=== PATIENT | female | born 1940 | race Caucasian/White ===

== ENCOUNTER → 2017-03-18 | Outpatient (CLI) | payer OTHER | LOC: FIMAGING 14:30 | PROVIDERS: ATTEND Orthopaedic Surgery | DX: Z01.818 Encounter for other preprocedural examination (principal); M17.0 Bilateral primary osteoarthritis of knee ==

== ENCOUNTER 2017-04-22 06:00 | Inpatient (IN) | payer OTHER ==
[~2017-04-22 06:00] MED LIST: ACETAMINOPHEN 325 MG TAB PO ONE; CEFAZOLIN 2 GM/DEXTR 100 ML IV ONE; CHLORHEXIDINE GLUC HIBICLENS 118 ML BTL TP ONE; FAMOTIDINE 20 MG TAB PO ONE; ROPI/epiNEPH/KETOROLAC/morphINE JOINT COCKTAIL IU ONE; TRANEXAMIC ACID 800 MG in NS 100 ML IV ONE
[2017-04-22] MEDS ORDERED: THROMBIN (BOVINE) 5,000 UNIT VIAL TP ONE (06:51)
[2017-04-22] MEDS ORDERED: CALCIUM CHLORIDE 1 GM/10 ML INJ ONE (06:51)
[2017-04-22] MEDS ORDERED: ONDANSETRON 4 MG/2 ML VIAL ONE (06:56)
[2017-04-22] MEDS ORDERED: MIDAZOLAM 2 MG/2 ML VIAL ONE (07:03)
[2017-04-22] MEDS ORDERED: fentaNYL 100 MCG/2 ML INJ ONE ×3 (07:07→11:39)
[2017-04-22] MEDS ORDERED: PROPOFOL/EMULSION 500 MG/50 ML BOTTLE IV ONE (07:08)
[2017-04-22] MEDS ORDERED: CEFAZOLIN 2 GM/DEXTROSE/100 ML BAG IV ONE (07:12)
[2017-04-22] MEDS ORDERED: ACETAMINOPHEN 325 MG TAB ONE (07:12)
[2017-04-22] MEDS ORDERED: FAMOTIDINE 20 MG TAB ONE (07:12)
[2017-04-22] MEDS ORDERED: LIDOCAINE 2% 5 ML SDV ONE ×2 (07:13→07:14)
[2017-04-22] MEDS ORDERED: ROPIVACAINE HCL 150 MG/30 ML INJ ONE (07:29)
[2017-04-22] MEDS ORDERED: PHENYLEPHRINE HCL 100 MCG/ML SYR ONE (07:33)
[2017-04-22] MEDS ORDERED: ONDANSETRON 4 MG/2 ML VIAL IVP ONE (10:30)
[2017-04-22] MEDS ORDERED: LR 1,000 ML IV ONE (11:38)
[2017-04-22] MEDS ORDERED: LIDOCAINE 1% 5 ML SDV ID PRN (11:38)
[2017-04-22] MEDS ORDERED: HYDROCODONE/APAP 5/325 TAB ONE (11:39)
[2017-04-22] MEDS ORDERED: traMADol 50 MG TAB PO PRN (14:30)
[2017-04-22] MEDS ORDERED: ACETAMINOPHEN 325 MG TAB PO PRN (14:33)
[2017-04-22] MEDS: ceFAZolin 2 GM/DEXTROSE 100 ML IV SCH ×2 (15:12→22:18)
[2017-04-22] MEDS: D5W 1/2 NS W/ 20 KCl/L 1,000 ML IV SCH (15:12)
[2017-04-22] MEDS ORDERED: ONDANSETRON 4 MG/2 ML VIAL IVP PRN (15:50)
[2017-04-22] MEDS ORDERED: PROMETHAZINE HCL 25 MG/ML INJ IVP PRN (15:51)
[2017-04-22] MEDS ORDERED: MELATONIN 3 MG TAB PO SCH (21:00)
[2017-04-22] MEDS ORDERED: ASPIRIN 325 MG TAB PO ONE (21:00)
[2017-04-23] MEDS: D5W 1/2 NS W/ 20 KCl/L 1,000 ML IV SCH (03:10)
[2017-04-23 05:01] LABS: HEMATOCRIT 36.7 % (38.0-47.0); HEMOGLOBIN 12.3 g/dL (12.6-16.3)
[2017-04-23] MEDS: ceFAZolin 2 GM/DEXTROSE 100 ML IV SCH (05:26)
--- NOTE | 2017-04-23 06:59 | PDIAF ---
- Diagnosis Diagnosis: right knee djd - Medication Management Discharge Medications: Medications to Continue on Transfer Ascorbic Acid [Vitamin C 500 mg (*)] 1,000 mg PO BID 04/04/17 [Last Taken ] Cholecalciferol Vit D3 [Vitamin D3 (*)] 1,000 units PO DAILY 04/04/17 [Last Taken 04/08/17] Cyanocobalamin [Vitamin B12 (*)] 1,000 mcg PO DAILY 04/04/17 [Last Taken ] Herbals/Supplements -Info Only 1 ea PO DAILY 04/04/17 [Last Taken 04/08/17] Losartan Potassium [Cozaar 25 mg (*)] 25 mg PO DAILY 04/04/17 [Last Taken 05:00] Melatonin [Melatonin 3 MG (*)] 3 mg PO HS 04/04/17 [Last Taken 04/21/17] Hydrocodone/APAP 5/325 [Vevay 5/325 (*)] 1 - 2 tab PO Q4 PRN #80 tab 04/23/17 [ Last Taken Unknown] Rivaroxaban [Xarelto 10mg (*)] 10 mg PO DAILY #30 tab 04/23/17 [Last Taken Unknown] traMADol [Ultram 50 mg (*)] 50 - 100 mg PO Q6 PRN #90 tab 04/23/17 [Last Taken Unknown] Discharge Medications: Refer to the Discharge Home Medication list for PRN reason. - Orders Services needed: Physical Therapy Diet Recommendation: no restrictions on diet Diet Texture: Regular Texture Diet Activity/Weight Bearing Restrictions: wbat. rom as jay. daily dressing changes. may shower without bandage. no soaking or immersion. seek attn for drainage, redness, swelling. f/u at two weeks - Follow Up Care Current Providers and Referrals: Hailey Linares MD [Primary Care Provider] -
[2017-04-23] MEDS: HYDROCODONE/APAP 5/325 TAB PO PRN ×3 (08:45→14:24)
[2017-04-23] MEDS ORDERED: RIVAROXABAN 10 MG TAB PO SCH (09:00)
[2017-04-23] MEDS ORDERED: LOSARTAN POTASSIUM 25 MG TAB PO SCH (09:00)
[2017-04-23] MEDS ORDERED: CHOLECALCIFEROL VIT D3 1,000 UNITS TAB PO SCH (09:00)
[2017-04-23] MEDS ORDERED: CYANO/VITAMIN B12 1000 MCG TAB PO SCH (09:00)
--- NOTE | 2017-04-23 09:52 | GDS ---
[f rep st] DISCHARGE SUMMARY ADMISSION DIAGNOSIS: Right knee degenerative joint disease. DISCHARGE DIAGNOSIS: Right knee degenerative joint disease. PROCEDURE: Right total knee arthroplasty. HISTORY OF PRESENT ILLNESS: The patient is a 76-year-old woman with end-stage arthritis to her [facility] t knee. Clinical and radiographic features are consistent with this. She has failed all attempts a t conservative management. I, therefore, recommended total knee replacement. She understood the ri sks, benefits, alternatives, and wished to proceed. Written consent was signed and placed in the ngoc coppola's chart. HOSPITAL COURSE: The patient was admitted to the hospital floor after uncomplicated total knee arth roplasty, MAKOplasty. She tolerated the procedure well. Overnight, she had no specific complicatio ns. She did have slight nausea and emesis. At the time of discharge, she is tolerating an oral t. Her pain is well controlled on oral medicines. She is voiding without difficulty. Her incision is clean, dry, and intact. Dressing is clean, dry, and intact. She has no calf swelling or tender ness. She has intact ankle plantar flexion, dorsiflexion, EHL function with 5/5 strength. X-rays a re stable with no fracture or lucency. DISCHARGE ACTIVITY: Weightbearing as tolerated. Range of motion as tolerated. Daily dressing armenta ges. May shower without the bandage. No soaking or immersion. Follow up in 2 weeks. Seek attenti on for increasing redness, swelling, drainage, discharge, or other focal complaints. DISCHARGE MEDICATIONS: Xarelto 10 mg p.o. daily, Holt 5/325 one to 2 every 6 hours p.r.n. pain, an d tramadol 50 mg one to 2 every 6 hours p.r.n. pain. /[id number]/MODL
[2017-04-23 12:04] VITALS: BP 132/60; PULSE 77; RESP 18; TEMP 97.8; O2SAT 95
== END 2017-04-23 15:22 | disposition home health service (06) | DRG 470 ==
LOC: F3N 06:00 → OBSVTOIN 14:41
PROVIDERS: ADMIT Orthopaedic Surgery; ATTEND Orthopaedic Surgery
PROC: 0SRC0J9 Replacement of Right Knee Joint with Synthetic Substitute, Cemented, Open Approach (ICD-10-PCS; principal; 2017-04-22 07:15)
PROC: 8E0YXBZ Computer Assisted Procedure of Lower Extremity (ICD-10-PCS; principal; 2017-04-22 07:15)
DX: M17.0 Bilateral primary osteoarthritis of knee (principal); M81.0 Age-related osteoporosis without current pathological fracture; E88.81 Metabolic syndrome and other insulin resistance
CPT/HCPCS: 97116-GP; 97161-GP; 97165-GO; C1713; G8978-GP-CJ; G8979-GP-CI; G8980-GP-CI; G8987-GO-CI; G8988-GO-CI; G8989-GO-CI; J0171; J0690; J1885; J2250; J2370; J2405; J2704; J2795; J3010

== ENCOUNTER → 2017-05-28 | Outpatient (CLI) | payer OTHER | LOC: BMCIMAGING 13:29 | PROVIDERS: ATTEND Internal Medicine | DX: Z12.31 Encounter for screening mammogram for malignant neoplasm of breast (principal); Z85.3 Personal history of malignant neoplasm of breast; Z90.11 Acquired absence of right breast and nipple | CPT/HCPCS: G0202-52 ==

== ENCOUNTER → 2017-05-31 | Outpatient (CLI) | payer OTHER | LOC: BMCIMAGING 09:45 | PROVIDERS: ATTEND Physician Assistant | DX: Z96.651 Presence of right artificial knee joint (principal) ==

== ENCOUNTER 2017-06-27 12:01 | Emergency (ER) | payer OTHER ==
[2017-06-27 12:11] VITALS: TEMP 98.1
--- NOTE | 2017-06-27 13:29 | CPEKG ---
Heart Rate: 80 RR Interval: 750 P-R Interval: 136 QRSD Interval: 88 QT Interval: 368 QTC Interval: 425 P Lincoln: 36 QRS Lincoln: -31 T Wave Lincoln: 47 EKG Severity - OTHERWISE NORMAL ECG - EKG Impression: SINUS RHYTHM EKG Impression: LEFT AXIS DEVIATION Electronically Signed By: Arnav Miranda 27-Jun-2017 17:13:57
[2017-06-27] MEDS ORDERED: NS 1,000 ML IV ONE (13:39)
[2017-06-27 13:56] LABS: % IMMATURE GRANULYOCYTES 0.2 % (0.0-1.1); ABSOLUTE IMMATURE GRANULOCYTES 0.01 10^3/uL (0.00-0.10); ADD DIFF? NO; ADD MORPH? NO; ADD SCAN? NO; ATYPICAL LYMPHOCYTE FLAG 0 (0-99); FRAGMENT RBC FLAG 0 (0-99); HEMATOCRIT 42.7 % (38.0-47.0); HEMOGLOBIN 14.4 g/dL (12.6-16.3); LEFT SHIFT FLG 0 (0-99); LIPEMIA HEMOLYSIS FLAG 80 (0-99); MEAN CELL HEMOGLOBIN 31.9 pg (27.9-34.1); MEAN CELL HEMOGLOBIN CONCENTR. 33.7 g/dL (32.4-36.7); MEAN CELL VOLUME 94.7 fL (81.5-99.8); MEAN PLATELET VOLUME 9.3 fL (8.7-11.7); PLATELET CLUMPS FLAG 10 (0-99); PLATELET COUNT 196 10^3/uL (150-400); RED BLOOD CELL COUNT 4.51 10^6/uL (4.18-5.33); RED CELL DISTRIBUTION WIDTH 13.4 % (11.5-15.2)
[2017-06-27 14:03] LABS: COLOR YELLOW; LEUKOCYTE ESTERASE,URINE TRACE (NEGATIVE); NITRITE,URINE NEGATIVE (NEGATIVE)
[2017-06-27 14:07] LABS: MUCUS TRACE /lpf (NONE-1+)
[2017-06-27 14:24] LABS: ANION GAP 14 mEq/L (8-16); CALCIUM 9.8 mg/dL (8.5-10.4); CARBON DIOXIDE 21 mEq/l (22-31); CHLORIDE 104 mEq/L (97-110); CREATININE 0.9 mg/dL (0.6-1.0); GLOMERULAR FILTRATION RATE > 60; GLUCOSE 101 mg/dL (70-100); POTASSIUM 4.1 mEq/L (3.5-5.2); SODIUM 139 mEq/L (134-144)
--- NOTE | 2017-06-27 14:56 | EDPHY ---
H & P Stated Complaint: r knee surg 04/22 having increasing fatigue/wt loss/shaky Time Seen by Provider: 06/27/17 13:33 HPI/ROS: CHIEF COMPLAINT: Feeling shaky HISTORY OF PRESENT ILLNESS: The patient presents to the ED with a one-week history of "feeling shaky." The patient had a knee replacement done in April. Over the past week she has been cutting back on her narcotic medications. Specifically she is cut her dose of narcotics and half. During this time she has developed some shakiness and mild restlessness. She has no complaints of fever, abdominal pain, vomiting, cough or dysuria. The patient does acknowledge that her symptoms may be secondary to cutting back on her narcotic medications. The patient denies any focal numbness or weakness. She denies any complaints of headache or trauma. She reports normal mobility in her knee replacement. REVIEW OF SYSTEMS: A comprehensive 10 point review of systems is otherwise negative aside from elements mentioned in the history of present illness. Source: Patient Exam Limitations: No limitations - Personal History Current Tetanus/Diphtheria Vaccine: Yes Tetanus Vaccine Date: less than 10 years ago - Medical/Surgical History Hx Asthma: No Hx Chronic Respiratory Disease: No Hx Diabetes: No Hx Cardiac Disease: No Hx Renal Disease: No Hx Cirrhosis: No Hx Alcoholism: No Hx HIV/AIDS: No Hx Splenectomy or Spleen Trauma: No Other PMH: PERIPHERAL NEUROPATHY, LEFT HIP REPAIR, PARTICAL LEFT MASECTOMY TOTAL RIGHT MASECTOMY , HTN, INTESTINAL BLOCKAGE TEMPORARY COLECTOMY REVERSEED. BRISSA HOFF, - Social History Smoking Status: Former smoker - Physical Exam Exam: General Appearance: Alert, no distress Eyes: Pupils equal and round no pallor or injection ENT, Mouth: Mucous membranes moist Respiratory: There are no retractions, lungs are clear to auscultation Cardiovascular: Regular rate and rhythm Gastrointestinal: Abdomen is soft and nontender, no masses, bowel sounds normal Neurological: A&O, normal motor function, normal sensory exam, normal cranial nerves Skin: Warm and dry, no rashes Musculoskeletal: Neck is supple nontender Extremities: symmetrical, full range of motion Constitutional: Initial Vital Signs Temperature (C) 36.7 C 06/27/17 12:08 Heart Rate 94 06/27/17 12:08 Respiratory Rate 19 06/27/17 12:08 Blood Pressure 156/90 H 06/27/17 12:08 O2 Sat (%) 95 06/27/17 12:08 O2 Delivery Mode Room Air Allergies/Adverse Reactions: oxycodone HCl [From Percocet] Allergy (Verified 06/27/17 12:06) Sulfa (Sulfonamide Antibiotics) Allergy (Verified 06/27/17 12:06) Vomiting Home Medications: Medication Instructions Recorded Ascorbic Acid [Vitamin C 500 mg 1,000 mg PO BID 04/04/17 (*)] Cholecalciferol Vit D3 [Vitamin D3 1,000 units PO DAILY 04/04/17 (*)] Cyanocobalamin [Vitamin B12 (*)] 1,000 mcg PO DAILY 04/04/17 Herbals/Supplements -Info Only 1 ea PO DAILY 04/04/17 Losartan Potassium [Cozaar 25 mg 25 mg PO DAILY 04/04/17 (*)] Hydrocodone/APAP 5/325 [Newman 1 - 2 tab PO Q4 PRN #80 tab 04/23/17 5/325 (*)] Medical Decision Making Procedures: Additional database consisted of a urinalysis which demonstrates no evidence of an infection. ED course Patient did receive 1 L of normal saline for IV rehydration. The patient's laboratory studies and urinalysis are within normal limits. The patient underwent serial examinations in the ED by myself. She has no focal neurologic deficits appreciated on her exam. She is hemodynamically stable. There is no evidence of a infection. The patient presents to the ED with uneasiness most consistent with her likely decreasing narcotic dose. At this point time she has no symptoms of over withdrawal. I do feel the patient can continue to slowly taper her narcotic medications. She will be discharged home with customary aftercare instructions and return precautions. ED Course/Re-evaluation: Differential diagnosis considered includes urinary tract infection, metabolic abnormality, narcotic withdrawal, dehydration - Data Points Laboratory Results: Laboratory Results 06/27/17 13:40 06/27/17 13:40 Medications Given: Discontinued Medications Sodium Chloride (Ns) 1,000 mls @ 0 mls/hr IV EDNOW ONE; Wide Open PRN Reason: Protocol Stop: 06/27/17 13:40 Last Admin: 06/27/17 13:54 Dose: 1,000 mls Departure - Departure Disposition: Home, Routine, Self-Care Clinical Impression: Generalized weakness Condition: Good Instructions: Weakness (ED) Additional Instructions: 1. Please return to the ED for worsening symptoms. 2. It is certainly possibly your symptoms today are a result of cutting back on her narcotic medications. Referrals: Hailey Linares MD [Primary Care Provider] - As per Instructions
[2017-06-27 15:21] VITALS: BP 170/102; PULSE 79; RESP 18; O2SAT 94
== END 2017-06-27 15:28 | disposition home or self-care (01) ==
DX: R53.1 Weakness (principal); E86.9 Volume depletion, unspecified; I10 Essential (primary) hypertension; Z87.891 Personal history of nicotine dependence

== ENCOUNTER → 2017-07-10 | Outpatient (CLI) | payer OTHER | LOC: BMCIMAGING 10:32 | PROVIDERS: ATTEND Orthopaedic Surgery | DX: Z09 Encounter for follow-up examination after completed treatment for conditions other than malignant neoplasm (principal); Z96.651 Presence of right artificial knee joint ==

== ENCOUNTER → 2017-09-11 | Outpatient (CLI) | payer OTHER | LOC: BMCIMAGING 10:27 | PROVIDERS: ATTEND Orthopaedic Surgery | DX: Z96.651 Presence of right artificial knee joint (principal); M25.461 Effusion, right knee; R93.6 Abnormal findings on diagnostic imaging of limbs ==

== ENCOUNTER → 2017-09-13 | Outpatient (CLI) | payer OTHER | LOC: BMCIMAGING 10:45 | PROVIDERS: ATTEND Orthopaedic Surgery | DX: D48.0 Neoplasm of uncertain behavior of bone and articular cartilage (principal) ==

== ENCOUNTER 2018-03-11 13:19 | Inpatient (IN) | payer OTHER ==
[2018-03-11] MEDS ORDERED: PROMETHAZINE HCL 25 MG/ML INJ IVP PRN (17:52)
[2018-03-11] MEDS ORDERED: HYDROmorphONE/DILAUDID 2 MG/ML INJ IVP PRN (17:52)
[2018-03-11] MEDS ORDERED: ONDANSETRON DISINTEGRATING 4 MG TAB PO PRN (17:52)
[2018-03-11] MEDS: MBX SOLN 30 ML BOTTLE PO PRN (18:27)
[2018-03-11] MEDS: ONDANSETRON 4 MG/2 ML VIAL IVP PRN (18:29)
[2018-03-11] MEDS: NS 1,000 ML IV SCH (18:30)
[2018-03-11] MEDS: FLUCONAZOLE/NaCl 100 ML IV SCH (18:30)
--- NOTE | 2018-03-11 18:41 | GHP ---
[f rep st] HISTORY AND PHYSICAL DATE OF ADMISSION: 03/11/2018 HISTORY OF PRESENT ILLNESS: Ms. Haroon sewell is a pleasant 77-year-old female with past medical history of hypertension and remote VTE who presents to the hospital today via her primary care physician's of vero with poor p.o. intake. She has developed some ulcers of the back of her mouth causing odynophag ia, dysphagia, and inability eat. She was swabbed earlier in a week for HSV and it was negative. Th e patient has no risk factors for HIV. She has not had HIV. She has lost some weight in the last we ek because of poor p.o. intake but prior to that, had not lost weight at all. She has had no lumps o r bumps on her skin. She has had no drenching weight loss. She is up to date on colonoscopy screeni ng. No lesions elsewhere. She takes no immunosuppressive. She has not been recently hospitalized. Does not take steroids, and has taken no antibiotics recently. REVIEW OF SYSTEMS: Complete 10-point review is conducted, negative except as noted in the HPI. PAST MEDICAL HISTORY: 1. Knee arthroplasty. 2. Hypertension. 3. Remote colostomy because of some fallopian tube scarring from ectopic . This was years ago. 4. History of pulmonary embolism with no recurrence. 5. History of breast lump. ALLERGIES: Oxycodone and sulfa. HOME MEDICATIONS: Tylenol, vitamin C, vitamin D, B12, losartan. SOCIAL HISTORY: No tobacco. No alcohol. FAMILY HISTORY: Parents . PHYSICAL EXAMINATION: VITAL SIGNS: Temp 37, blood pressure 147/71, pulse 80, breathing 17 a times a minute, 91% on room air. GENERAL: No acute distress. HEENT: Sclerae anicteric. Oropharynx shows white flat-based ulcers to the back of her throat. NECK: There is no cervical or submandibular lymp hadenopathy. There is no supraclavicular lymphadenopathy. LUNGS: Clear to auscultation bilaterally . HEART: S1, S2. ABDOMEN: Soft, nontender, nondistended. LOWER EXTREMITIES: No edema. Calves n ontender. SKIN: Without rash. NEUROLOGIC: Nonfocal. LABS: None other than a recent HSV, which is negative. IMAGING: None. I have discussed the case with Dr. Bret Davis and Dr. Wade Gayle. ASSESSMENT/PLAN: A 77-year-old female presents with thrush, odynophagia. 1. Thrush. I am concerned she has candidal esophagitis. I will start her on fluconazole and nystat in swish and swallow. Gastroenterology will see her tomorrow for EGD. 2. I will send an human immunodeficiency virus test and have Infectious Disease see her for full carol luation. 3. Volume depletion. The patient is volume depleted on exam. We will provide intravenous fluids. 4. Prophylaxis. Pharmacologic prophylaxis indicated. Will start low-molecular heparin prophylaxis a fter tomorrow with the biopsy. DISPOSITION: Inpatient status. /[id number]/MODL
[2018-03-11 21:16] LABS: HIV TYPE 1 AND 2 NEGATIVE (NEGATIVE)
[2018-03-11] MEDS: NYSTATIN SUSP 500000 UNIT/5 ML UDCUP PO SCH (21:53)
[2018-03-12] MEDS: ONDANSETRON 4 MG/2 ML VIAL IVP PRN ×3 (01:22→14:00)
[2018-03-12] MEDS: MELATONIN 3 MG TAB PO PRN (01:56)
[2018-03-12] MEDS: NS 1,000 ML IV SCH (04:09)
[2018-03-12] MEDS: NYSTATIN SUSP 500000 UNIT/5 ML UDCUP PO SCH ×3 (05:17→17:39)
[2018-03-12 05:35] LABS: PLATELET COUNT 225 10^3/uL (150-400)
[2018-03-12] MEDS ORDERED: LOSARTAN POTASSIUM 25 MG TAB PO SCH (09:00)
[2018-03-12] MEDS: FLUCONAZOLE/NaCl 100 ML IV SCH (09:41)
--- NOTE | 2018-03-12 10:29 | GCON ---
[f rep st] CONSULTATION DATE OF CONSULTATION: 03/12/2018 REQUESTING PROVIDER: Vishnu Miller MD. REASON FOR CONSULTATION: Odynophagia. Dear Dr. Miller: Thank you very kindly for asking me to evaluate the patient in consultation for a chief complaint of painful swallowing. She describes this mostly as a sore throat. She is unable to really eat or drin k because of the pain and discomfort in her mouth and posterior pharynx. She denies any reflux or ch est pain and does not describe any overt dysphagia. She has been discovered to have oral thrush clin ically, for which treatment has been initiated, but she does not feel any significantly better. She has been losing weight because of the inability to eat or drink. Interestingly, this acute pharyngit is developed in concert with lower abdominal discomfort, nausea, and watery diarrhea that has been ab out a week in duration. She did have visiting relatives from [facility], and one of the young children c cholo down with chickenpox after he returned home to [facility], but she has had chickenpox when she was a youngster. She denies any skin lesions or itching. She denies any fever or chills. She has had no previous episodes of difficulty swallowing. She says the diarrhea is nonbloody and denies any hemate mesis, vomiting, or melena. She does have some fresh bright red blood per rectum that began since th e diarrhea started. She has had a colonoscopy at [facility] with Dr. Mcintosh within the l ast 5 years and says this has been normal. She was described as having hemorrhoids. I am asked to a ssist with further evaluation and management of her current symptoms and illness. PAST MEDICAL HISTORY: Significant for hypertension, pulmonary embolism, breast cancer. PAST SURGICAL HISTORY: For a knee arthroplasty. She has had a colostomy with takedown related to a bowel obstruction related to adhesions from what is described as an ectopic and scarring. Breast biopsies. MEDICATIONS: Include Tylenol, vitamin C, vitamin D, B12, and losartan. ALLERGIES: Oxycodone and sulfa medications. SOCIAL HISTORY: The patient lives in [place]. She is a retired high school counselor. No tobacco. No alcohol. No substance abuse. FAMILY HISTORY: Negative for esophageal cancer, peptic ulcer disease, chronic heartburn, pancreatic illness, or other GI malignancy. REVIEW OF SYSTEMS: CONSTITUTIONAL: Denies fever or chills. She has reported a loss of appetite and about a 10-pound weight loss in the last week. HEENT: She describes some tongue pain, sore throat, painful swallowing. No rhinorrhea. No ear pain. No epistaxis. No headache. PULMONARY: Cough, n onproductive. CARDIOVASCULAR: Denies chest pain. No palpitations. No syncope. GI: She reports n ausea. Loose, watery diarrhea for last week. Lower abdominal discomfort that is mild with the diarr hea, described more as a cramping. She has reported some hematochezia, describing fresh blood per re ctum with the diarrhea recently that has been about 4 or 5 days and small in volume. No vomiting. S he denies any heartburn, regurgitation, or overt solid food dysphagia. RHEUMATOLOGIC: Denies joint pain, swelling, or warmth. DERMATOLOGIC: Denies rash, pruritus, or jaundice. NEUROLOGIC: No pares thesias or focal motor weakness. GENITOURINARY: No hematuria or flank pain. GYNECOLOGIC: No vagin al bleeding or discharge. PSYCHIATRIC: No depression or anxiety. She has had some difficulty sleep ing with this illness, mostly because of her discomfort. ENDOCRINE: No heat or cold intolerance. H EMATOLOGIC: No bruising or epistaxis. No history of bleeding disorders. LYMPH: Denies any adenopa thy. PHYSICAL EXAM: VITAL SIGNS: Blood pressure is 154/72, heart rate is 85, respirations are 15, oxygen ation is 90% on room air, 95% on 2 L nasal cannula, temperature max is 37 with a T-current of 36.9. GENERAL: Elderly female. She seems in mild distress, mostly due to throat pain, and she spitting in to a cup. HEENT: Neck is supple. Sclerae anicteric. Mucous membranes are very dry. There is a wh ite coating on the tongue that is consistent with thrush. The posterior oropharynx also has some sma ll white plaque-like spots on the tonsillar pillars. There is some tonsillar enlargement with erythe ma. The trachea is midline. There is no cervical adenopathy. No thyromegaly. No tenderness to pal pation over the neck. No palpable mass or crepitus. No supraclavicular adenopathy. PULMONARY: Goo d air exchange without rales or wheeze. CARDIOVASCULAR: Regular rate and rhythm. Systolic murmur, 2/6, at the left upper border without radiation. ABDOMEN: Soft and nondistended. Normal bowel soun ds. No tenderness, rebound, or guarding. No organomegaly. No ascites. No bruit. MUSCULOSKELETAL: Normal gait and station without clubbing, cyanosis, or joint deformity. DERMATOLOGIC: Negative fo r rash, jaundice, or lesion. NEURO: Alert to person, place, and time. Speech is normal. Mood is a ppropriate. Facial features are symmetric. She has no focal motor deficits. Gait does not seem jayy xic. DATABASE: Includes a white count of 4.5, hematocrit of 35.6, platelets are 225. Sodium 149, potassi um 3.9, chloride 113, bicarbonate 27, BUN 25, creatinine 0.8, glucose 113, calcium 8.0. HIV 1 and 2 antibodies are negative. IMPRESSION: 1. Odynophagia. 2. Pharyngitis. 3. Anorexia with weight loss that is unintentional and likely due to malnutrition as she is not able to eat or drink. 4. Acute diarrhea, likely infectious. 5. Nausea. 6. Lower abdominal discomfort. 7. Hematochezia. Clinically, sounds hemorrhoidal. RECOMMENDATIONS: 1. IV fluid hydration. 2. N.p.o. for now. 3. Begin Diflucan for treatment of oral thrush, along with nystatin swish and swallow. 4. Upper endoscopy will be arranged with Anesthesia's assistance due to her age and relative hypoxia today. This will be to interrogate whether there is any esophageal candidiasis or viral ulcerations that may be helpful diagnostically. 5. Given her nausea, the endoscopy will also be useful to rule out gastritis or ulcer disease, altho ugh this seems less likely. 6. Stool PCR for pathogens given her acute diarrhea. 7. Infectious Disease has already been consulted, according to Dr. Miller's note, to help with her e valuation and workup, especially in light of the recent exposure to a young child with recent chicken pox. I believe that having had chickenpox when the patient was young should protect her with immunog enicity to this, but it still could be within the differential. This may be able to be delineated so me based on her endoscopic findings in regard to whether there is the presence of any ulcerations augustine t seem viral. 8. I would recommend a PA and lateral chest x-ray given her hypoxia. 9. I have discussed her care with Dr. Miller. Further recommendations to follow her endoscopy today . Hopefully, we will be able to advance her diet and help diagnostically. 10. Viscous lidocaine swish and swallow could be added for comfort to help her eat and drink in the interim. Thank you for allowing me to be involved in her care. /[id number]/MODL
[2018-03-12] MEDS ORDERED: PROPOFOL/EMULSION 500 MG/50 ML BOTTLE IV ONE (12:40)
[2018-03-12] MEDS ORDERED: LIDOCAINE 2% 5 ML SDV ONE (12:40)
--- NOTE | 2018-03-12 13:01 | POSTANESTH ---
Post Anesthetic Evaluation Cardiovascular Status: Normal, Stable Respiratory Status: Normal, Stable Level of Consciousness/Mental Status: Mildly Sleepy, Arousable Pain Control: Adequate, Prn Tx Ordered Nausea/Vomiting Control: Adequate, Prn Tx Ordered
--- NOTE | 2018-03-12 13:01 | PDANEPAE ---
ANE History of Present Illness egd ANE Past Medical History - Cardiovascular History Hx Hypertension: Yes Hx Arrhythmias: No Hx Chest Pain: No Hx Coronary Artery / Peripheral Vascular Disease: No Hx CHF / Valvular Disease: No Hx Palpitations: No - Pulmonary History Hx COPD: No Hx Asthma/Reactive Airway Disease: No Hx Recent Upper Respiratory Infection: No Hx Oxygen in Use at Home: No Hx Sleep Apnea: No Sleep Apnea Screening Result - Last Documented: Negative - Neurologic History Hx Cerebrovascular Accident: No Hx Seizures: No Hx Dementia: No - Endocrine History Hx Diabetes: No - Renal History Hx Renal Disorders: No - Liver History Hx Hepatic Disorders: No - Neurological & Psychiatric Hx Hx Neurological and Psychiatric Disorders: No Neurological / Psychiatric History Comment: spouse w/Alzheimers February 2017 - Cancer History Hx Cancer: Yes Cancer History Comment: breast - Congenital Disorder History Hx Congenital Disorders: No - GI History Hx Gastrointestinal Disorders: Yes Gastrointestinal History Comment: internal hemorrhoids - Other Health History Other Health History: PE s/p L partial mastectomy -placed on Warfarin x 6 mos;. OA R knee - Chronic Pain History Chronic Pain: No - Surgical History Prior Surgeries: L partial mastectomy 2011. R br mastectomy w/reconstruction ( TRAM Flap). R lumpectomy. intestinal resection. w/colostomy. colostomy reversal. L hip ORIF ANE Review of Systems Review of Systems: ANE Patient History - Allergies Allergies/Adverse Reactions: oxycodone HCl [From Percocet] Allergy (Verified 06/27/17 12:06) Sulfa (Sulfonamide Antibiotics) Allergy (Verified 06/27/17 12:06) Vomiting - Home Medications Home Medications: Ascorbic Acid [Vitamin C 500 mg (*)] 1,000 mg PO DAILY 04/04/17 [Last Taken ] Cholecalciferol Vit D3 [Vitamin D3 (*)] 1,000 units PO DAILY 04/04/17 [Last Taken 03/09/18] Cyanocobalamin [Vitamin B12 (*)] 1,000 mcg PO DAILY 04/04/17 [Last Taken ] Herbals/Supplements -Info Only 1 ea PO DAILY 04/04/17 [Last Taken 04/08/17] Losartan Potassium [Cozaar 25 mg (*)] 25 mg PO DAILY 04/04/17 [Last Taken 05:00] Acetaminophen [Tylenol 325mg (*)] 325 mg PO Q6 PRN 03/11/18 [Last Taken Unknown] - Smoking Hx Smoking Status: Former smoker ANE Labs/Vital Signs - Labs Result Diagrams: 03/12/18 05:08 03/12/18 05:08 - Vital Signs Blood Pressure: 180/81 Heart Rate: 88 Respiratory Rate: 20 O2 Sat (%): 93 Height: 177.8 cm Weight: 74.6 kg ANE Physical Exam - Airway Neck exam: FROM Mallampati Score: Class 2 - Pulmonary Pulmonary: clear to auscultation - Cardiovascular Cardiovascular: regular rate and rhythym - ASA Status ASA Status: III ANE Anesthesia Plan Anesthesia Plan: GA with mask
[2018-03-12] MEDS ORDERED: NALOXONE HCL 0.4 MG/ML INJ IVP PRN (13:04)
--- NOTE | 2018-03-12 13:06 | GIREPORT ---
[facility] - Endoscopy Department Patient Name: Nichelle Patiño Procedure Date: 03/12/2018 12:11 PM Patient Type: Inpatient Attending MD/ ER Physician: Bret Davis MD Procedure: Upper GI endoscopy Indications: Dysphagia, Odynophagia Providers: Bret Davis MD Medicines: Propofol per Anesthesia Complications: No immediate complications. Description of Procedure: After obtaining informed consent, the endoscope was passed under direct vision. Throughout the procedure, the patient's blood pressure, pulse, and oxygen saturations were monitored continuously. The Endoscope was intro duced through the mouth, and advanced to the second part of duodenum. The [facility] er GI endoscopy was accomplished without difficulty. The patient tolerated th e procedure well. Findings: One mild benign-appearing, intrinsic stenosis was found at the gastroesophageal junction. This measured 1.2 cm (inner diameter) x less than one cm (in length) and was traversed. Patchy moderate inflammation characterized by erosions and erythema was found in the gastric body and in the gastric antrum. Biopsies were take n with a cold forceps for histology. The examined duodenum was normal. Estimated Blood Loss: Estimated blood loss: none. Post Op Diagnosis: - Benign-appearing esophageal stenosis. - Acute gastritis. Biopsied. - Normal examined duodenum. - I feel her clinical picture is most consistent with a viral pharyngit is syndrome. Recommendation: - Use Protonix (pantoprazole) 40 mg PO daily. - Advance diet as tolerated. - Check stool for pathogens given the diarrhea but clinically viral gastroenteritis or diarrhea related to a viral pharyngitis seems most l ikely. - There is not esophageal candidasis and so if she is not felt to have thrush I would stop diflucan. - Care per internal medicine wihtout further GI evaluation at this time . - [facility] patient to [facility] for [facility] care. - Thank you for allowing me to be involved in the care of your patient. Attending Participation: I personally performed the entire procedure without the assistance of a fellow, resident or surg ical assistant credit manager. Bret Davis MD Bret Davis MD 03/12/2018 1:06:24 PM This report has been signed electronicallyDavid MD Ryan Number of Addenda: 0 Note Initiated On: 03/12/2018 12:11 PM [email or web address]
[2018-03-12] MEDS ORDERED: ONDANSETRON 4 MG/2 ML VIAL ONE (13:43)
--- NOTE | 2018-03-12 13:54 | GCON ---
[f rep st] CONSULTATION DATE OF CONSULTATION: 03/12/2018 REFERRING PHYSICIAN: Vishnu Miller MD REASON FOR REFERRAL: Question thrush. HISTORY OF PRESENT ILLNESS: Patient is a 77-year-old female who was in her normal state of health up until approximately 1 week prior to admission. The patient, at that point, began having some pain i n her mouth and throat and inability to eat. She also had some diarrhea and decreased p.o. intake. The patient has visited her primary care physician as well as the emergency room. Other than an anti hypertensive, she is on no typical medications. The patient did have a visit with family approximate ly a week before she became symptomatic and one of the young children in that visit did come down wit h chickenpox. However, the patient has a distant history of chickenpox. She complains of oral ulcer ations and diarrhea. Otherwise no fevers or chills. The patient denies any night sweats. Denies an y rash. PAST MEDICAL HISTORY: 1. Hypertension. 2. History of pulmonary embolism. PAST SURGICAL HISTORY: 1. Status post knee arthroplasty. 2. 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 This was m jefry decades ago. ANTIBIOTICS: 1. Fluconazole. 2. Nystatin swish. ALLERGIES: Patient is allergic to sulfa drugs and oxycodone. SOCIAL HISTORY: Patient is a . She lost her approximately 1 year ago. Recently she so ld the house that they lived in for the last 25 years, and is currently renting it back from the new owners short-term while she finds a more permanent place to live. She characterizes this is a very s tressful time in her life. Denies any tobacco, alcohol or drug use. FAMILY HISTORY: Reviewed, but noncontributory. REVIEW OF SYSTEMS: Other than that detailed above in history of present illness, a comprehensive 10- system review is negative. PHYSICAL EXAMINATION: VITAL SIGNS: Temperature maximum is 37.4, temperature current is 37.3, heart rate 88, respiratory rate 20, blood pressure is 180/81. GENERAL: The patient is a well-formed, well -nourished, elderly female, in no acute distress. She is not toxic in appearance. She is alert and oriented x3. She has a pleasant demeanor. HEENT: Normocephalic for age. Atraumatic. No scleral i cterus. The patient does have multiple oral ulcerations apparent on her hard and soft palates as wel l as back on her tonsillar areas. These are whitish in coloration. They do not appear to be thrush- like. EYES: Lids and conjunctivae are within normal limits. Pupils are equal and round bilaterally . NECK: Supple. No meningismus. LUNGS: Clear to auscultation bilaterally. Good effort. HEART: Regular rate and rhythm. No significant peripheral edema. SKIN: Warm and dry to the touch. No ra sh or lesion noted. MUSCULOSKELETAL: No muscle tenderness is noted. No joint line effusion or arth ritis seen. NEURO: Cranial nerves 2-12 seem to be intact. Peripheral sensation seems intact in ext remities. LABORATORY DATA: The patient had a CBC dated 03/12/2018, showed a white blood cell count of 4.6, hem oglobin of 11.3, hematocrit 35.6, and a platelet count of 225. Differential shows 38% mature segment ed neutrophils with 37% band forms. The patient has 1% eosinophils. Serum chemistries on 03/12/2018 show sodium 149, potassium 3.9, chloride of 113, bicarbonate 27, BUN of 25 and creatinine of 0.8. The patient had an HIV 1 and 2 antibody dated 03/11/2014 which were neg ative. MICROBIOLOGIC DATA: Patient had blood cultures dated 03/11/2014 which are pending. ASSESSMENT: Diarrhea and oral ulcerations in elderly female with no significant underlying medical h istory. The patient does not have any significant symptoms of toxicity; however, her CBC shows a sig nificant bandemia. The oral ulcerations do not look significantly thrush-like. I am somewhat suspic ious that this is secondary to a viral etiology. The patient is HIV negative. CMV would be another possibility of cause of oral and esophageal ulcerations as well as diarrhea from colonic involvement. Agree with gastroenterology workup. Chickenpox would not be a concern as to this presentation, delmi ecially since this patient is undoubtedly immunologically familiar with this agent. Exposure to acut laura ill younger people with active chickenpox should not be a threat to this woman. PLAN: 1. Add CMV titers as well as PCR to blood tests. 2. Expand chemistries to include liver function tests. 3. Await Gastroenterology scope results. 4. Observe off antibiotics for now. /[id number]/MODL
--- NOTE | 2018-03-12 14:00 | PDMN ---
Medical Necessity Medical necessity: est los>2mn for thrush and odynophagia, with concern for linda esophagitis; admit for IV fluconazole, IVF, EGD, and ID consult; comorbid htn, hx PE; per order and H&P 03/11/18
[2018-03-12] MEDS ORDERED: LIDOCAINE 2% VISCOUS 15 ML UDCUP PO PRN (14:47)
[2018-03-12] MEDS ORDERED: CALCIUM CARBONATE 500 MG CHEWABLE TAB PO PRN (17:29)
[2018-03-12] MEDS ORDERED: PROMETHAZINE HCL 25 MG TAB PO PRN (17:30)
[2018-03-12] MEDS ORDERED: HYDROmorphone HCL/NS 0.5 MG/ML SYR IVP PRN (17:31)
--- NOTE | 2018-03-12 17:37 | HOSPPROG ---
Hospitalist Progress Note Assessment/Plan: Assessment: 77-year-old female presents with inability to tolerate oral intake secondary to acute mucositis and gastritis Plan: 1. Mucositis. Acute, new problem this provider, further workup indicated. Onset of symptoms approximately 1 week ago, most likely viral precipitant resulting in posterior hard palate ulcerations, may be consistent with erythema multiforme major and resulting in posterior oral pain, limiting her oral intake -patient was admitted from her primary care office secondary to failure to tolerate oral intake and concerns regarding weight loss, failure to thrive -she was initiated on fluconazole and nystatin for concerns of possible esophageal candidiasis, but I have discussed this with Dr. Bret Davis, and he feels like the upper endoscopy did not demonstrate evidence of esophageal erosions and these posterior hard palate lesions are less likely to be candidal -discontinue fluconazole and nystatin and observe off of antifungals or antibiotics -discussed with Dr. Arnold Villagomez, infectious Disease consultation appreciated, he has not recommended swabbing for HSV as the result would not change current management as it is 1 week out from onset of symptoms, but he does recommend checking CMV and the liver panel that was ordered did demonstrate transaminitis , suggestive of viral process -hold on systemic steroids given that the patient's oral pain is currently supportively managed with viscous lidocaine, she is advancing her oral intake -continue viscous lidocaine as well as clear liquid diet, advanced to solids tomorrow if tolerating 2. Gastritis. Acute, resulting in pervasive of vomiting, discussed with Dr. Bret Davis and he believes that this may be connected to the underlying viral precipitant with resultant gastric irritation -reduce acid secretion with scheduled PPI, scheduled H2 lisa, as needed Tums -continue supportive pain medication 3. Diarrhea. Acute, new problem this provider, further workup indicated. Likely connected to the above processes and viral in origin -get GI PCR panel -if negative for C diff, will order as needed Imodium for supportive care -stop IV fluids given her escalating blood pressures, advancing oral intake -Dr. Bret Davis will discussed with the patient possible colonoscopy tomorrow if diarrhea continues 4. Chronic hypertension. Likely acutely elevated blood pressures in the setting of discomfort, review of patient's blood pressure throughout her stay demonstrates a consistent elevation -supportively manage her symptoms -increase her losartan to 25 mg twice daily, gauge effect Diet. Clears Prophylaxis. Moderate risk patient, Lovenox 40 Code. Full Disposition. Anticipated discharge uncertain, symptoms have yet to clinically resolve, require ongoing management. Subjective: Ongoing nausea, continues to spit up mucus, 2 episodes of diarrhea since EGD Objective: Vital Signs Temp Pulse Resp BP Pulse Ox 36.8 C 89 14 180/106 H 96 03/12/18 14:33 03/12/18 15:35 03/12/18 15:35 03/12/18 15:35 03/12/18 15:35 Laboratory Results 03/12/18 05:08 03/12/18 16:55 03/11/18 03/12/18 03/13/18 05:59 05:59 05:59 Intake Total 1011 500 Balance 1011 500 - Physical Exam Constitutional: no apparent distress, uncomfortable, No not in pain (Mild), No chronically ill appearing Ears, Nose, Mouth, Throat: other (Hard palate with numerous pale shallow ulcerations very minimally erythematous borders) Cardiovascular: regular rate and rhythym, systolic murmur (1/6 at the sternum), No tachycardia, No edema Respiratory: no respiratory distress, no rales or rhonchi, clear to auscultation Gastrointestinal: No normoactive bowel sounds (Hypoactive bowel sounds), No tenderness, No guarding, No distension Neurologic: AAOx3 Psychiatric: interacting appropriately, not anxious, not encephalopathic, thought process linear ICD10 Worksheet Patient Problems: Problems Problem Status Onset Mucositis Acute
[2018-03-12] MEDS: PANTOPRAZOLE SODIUM 40 MG VIAL IVP SCH (18:22)
[2018-03-12] MEDS: FAMOTIDINE 20 MG/NACL 50 ML IV SCH (20:48)
[2018-03-12] MEDS: traZODone 50 MG TAB PO SCH (20:50)
[2018-03-12] MEDS: LOSARTAN POTASSIUM 25 MG TAB PO SCH (20:50)
[2018-03-13] MEDS: ONDANSETRON 4 MG/2 ML VIAL IVP PRN ×2 (04:43→08:39)
[2018-03-13 05:20] LABS: PLATELET COUNT 296 10^3/uL (150-400)
[2018-03-13] MEDS: PANTOPRAZOLE SODIUM 40 MG VIAL IVP SCH (08:51)
[2018-03-13] MEDS: FAMOTIDINE 20 MG/NACL 50 ML IV SCH (08:51)
[2018-03-13] MEDS: LOSARTAN POTASSIUM 25 MG TAB PO SCH ×2 (08:52→21:32)
[2018-03-13] MEDS: LORazepam 0.5 MG TAB PO PRN ×3 (09:39→21:34)
--- NOTE | 2018-03-13 13:12 | PCMIDPN ---
Assessment/Plan: # Punched out oral ulceration most prominent on palate, severe dysphagia. Query HSV, EM or HSV precipitating EM. HIV negative --swabbed for HSV today --start empiric valtrex 1gm PO bid --hold off on systemic steroids for now, could try adding to oral solution s/s --CMV studies pending # acute gastritis: Path showed Chronic gastritis, H pylori negative, negative for viral cytopathic effect. Likely separate process from oral ulcerations Subjective: trouble swallowing due to oral ulcerations concerned about getting colonoscopy no diarrhea +brbpr on stool, no abdominal pain Objective: Vital Signs Temp Pulse Resp BP Pulse Ox 37.1 C 82 16 150/65 H 97 03/13/18 12:00 03/13/18 12:00 03/13/18 12:00 03/13/18 12:00 03/13/18 12:00 Microbiology 03/12/18 15:30 Gastrointestinal Tract Panel (PCR) - Final Stool No Organism Detected Laboratory Results 03/13/18 04:47 03/13/18 04:47 03/12/18 03/13/18 03/14/18 05:59 05:59 05:59 Intake Total 1011 1420 Balance 1011 1420 - Physical Exam General Appearance: alert, no apparent distress EENT: other (10 to 20 ulcer on palate, punched out appearance w white base, teeth okay, tongue okay, under tongue okay) Neck: supple, No tender lateral, No tender midline Cardiac/Chest: regular rate, rhythm, systolic murmur Extremities: No pedal edema Abdomen: non-tender, soft Skin: No rash (no palmar rash) Neuro/Psych: alert, normal mood/affect, oriented x 3 - Time Spent With Patient Time Spent with Patient: greater than 35 minutes (Care discussed with pharmacy and Dr. Bernardo) Time Spent with Patient: Greater than 35 minutes spent on this patients care, greater than 50% of time spent counseling, educating, and coordinating care regarding the above mentioned plan. ICD10 Worksheet Patient Problems: Problems Problem Status Onset Mucositis Acute
[2018-03-13] MEDS: valACYclovir 500 MG TAB PO SCH ×2 (14:25→21:34)
[2018-03-13] MEDS: 1/2 NS 1,000 ML IV SCH (18:06)
[2018-03-13] MEDS: NYSTATIN SUSP 500000 UNIT/5 ML UDCUP PO SCH ×2 (18:06→21:33)
--- NOTE | 2018-03-13 18:30 | HOSPPROG ---
Hospitalist Progress Note Assessment/Plan: * Oral ulcerations -check HSV - empiric valtrex -? erythema multiforme - hold off on steroids * Gastritis -PPI * Abnormal LFT with very low albumin -no h/o liver disease -check US abd * Hypernatremia -difficult to maintain oral intake due to severe dysphagia -IVF Subjective: Still severe mouth pain - swallowing a little better Objective: Vital Signs Temp Pulse Resp BP Pulse Ox 36.8 C 73 16 158/78 H 92 03/13/18 17:19 03/13/18 17:19 03/13/18 17:19 03/13/18 17:19 03/13/18 17:19 Microbiology 03/12/18 15:30 Gastrointestinal Tract Panel (PCR) - Final Stool No Organism Detected Laboratory Results 03/13/18 04:47 03/13/18 04:47 03/12/18 03/13/18 03/14/18 05:59 05:59 05:59 Intake Total 1011 1420 250 Balance 1011 1420 250 d/w Dr. kaba - rule out HSV EGD reviewed - no esophagitis that looks infectious - Physical Exam Constitutional: no apparent distress, appears nourished, not in pain Ears, Nose, Mouth, Throat: oral thrush, oral ulcer, other (thick white coating on tongue. back of hard palate with white ulcerations), No dry mucous membranes Respiratory: no respiratory distress, no rales or rhonchi, clear to auscultation Gastrointestinal: normoactive bowel sounds, soft, non-tender abdomen, no palpable masses Skin: no rashes or abrasions, no fluctuance, no induration Neurologic: AAOx3, sensation intact bilaterally Psychiatric: interacting appropriately, not anxious, not encephalopathic, thought process linear ICD10 Worksheet Patient Problems: Problems Problem Status Onset Mucositis Acute
[2018-03-13] MEDS: traZODone 50 MG TAB PO SCH (21:34)
[2018-03-13] MEDS: ACETAMINOPHEN 325 MG TAB PO PRN (21:39)
[2018-03-14 05:06] LABS: INR 1.29 (0.83-1.16); PROTIME(PATIENT) 16.3 SEC (12.0-15.0)
[2018-03-14] MEDS: NYSTATIN SUSP 500000 UNIT/5 ML UDCUP PO SCH (05:42)
--- NOTE | 2018-03-14 06:46 | SOAPPROG ---
SOAP Progress Note Assessment/Plan: Assessment: 1. Hematochezia 2. Diarrhea without abdominal pain 3. Elevated LFTs improved 4. Odynophagia 5. Early satiety 6. Acute gastritis Plan: 1. Review U/S when available today. Doubt biliary cause without pain. Likely elevated LFTs related to the systemic process (infectious diarrhea or inflammatory) 2. Await infectious serology evaluation 3. Obtain most recent colonoscopy and flexible sigmoidoscopy reports from Dr. Mcintosh 4. May need to repeat her colonoscopy with the hematochezia and diarrhea to aid with dx but she to date has not been really well enough to do a bowel cleanse. 5. Continue to advance diet as tolerated 6. Try imodium for diarrhea symptomatically today 7. Await gastric biopsies and continue PPI therapy 03/14/18 06:42 03/14/18 06:47 Subjective: CC: Odynophagia. Continues to have mouth pain preventing eating well. Feels full early. EGD non- diagnostic. Objective: Vital Signs Temp Pulse Resp BP Pulse Ox 36.4 C 91 16 168/76 H 89 L 03/14/18 04:00 03/14/18 04:00 03/14/18 04:00 03/14/18 04:00 03/14/18 04:00 Microbiology 03/13/18 19:05 JASMYNE Preparation - Final Tongue - Swab Laboratory Results 03/13/18 04:47 03/14/18 04:35 03/13/18 03/14/18 03/15/18 05:59 05:59 05:59 Intake Total 1420 1350 Balance 1420 1350 PT 16.3 SEC (12.0-15.0) H 03/14/18 04:35 INR 1.29 (0.83-1.16) H 03/14/18 04:35 Physical Exam - Physical Exam General Appearance: no apparent distress EENT: other (Dry MM. Small palatal erosions) Respiratory: lungs clear Cardiac/Chest: regular rate, rhythm, systolic murmur, extra beats Abdomen: normal bowel sounds, non-tender, soft, No distended, No guarding, No rebound, No ascites Skin: normal color, warm/dry ICD10 Worksheet Patient Problems: Problems Problem Status Onset Mucositis Acute
[2018-03-14] MEDS: MBX SOLN 30 ML BOTTLE PO PRN (08:47)
[2018-03-14] MEDS: LOSARTAN POTASSIUM 25 MG TAB PO SCH ×2 (08:47→21:00)
[2018-03-14] MEDS: PANTOPRAZOLE SODIUM 40 MG TAB PO SCH (08:47)
[2018-03-14] MEDS: valACYclovir 500 MG TAB PO SCH (08:47)
[2018-03-14] MEDS: 1/2 NS 1,000 ML IV SCH (09:21)
[2018-03-14 09:40] LABS: HEPATITIS A ANTIBODY IGM (BCH) NEGATIVE (NEGATIVE); HEPATITIS B CORE AB IGM NEGATIVE (NEGATIVE); HEPATITIS B SURFACE ANTIGEN NEGATIVE (NEGATIVE); HEPATITIS C ANTIBODY TOTAL NEGATIVE (NEGATIVE)
[2018-03-14] MEDS: LORazepam 0.5 MG TAB PO PRN (11:01)
[2018-03-14] MEDS: ACETAMINOPHEN 325 MG TAB PO PRN ×2 (11:04→16:17)
--- NOTE | 2018-03-14 11:05 | PCMIDPN ---
Assessment/Plan: 1. Severe erosive soft palate ulcerations with surrounding slough/mucositis and concomitant bloody diarrhea: Previous HSV testing on March 07 was negative, and the patient had no response to fluconazole. Valtrex started yesterday. CMV testing revealing only of previous disease. Patient continues to have concomitant bloody diarrhea as well, without explanation. She needs a CT scan of the abdomen and pelvis today, and encouraged patient to drink as much oral contrast as possible. I also obtained viral transport media for testing for enterovirus given recent exposure to small children, and swabbed the back of her throat. Will also obtain enteroviral plasma PCR, and vasculitis studies. GI panel PCR recently negative. Addendum: HSV/VZV PCR of the soft palate negative. Will discontinue Valtrex. Over 35 min was spent with this patient today. 03/14/18 11:08 Subjective: Continues to be very tired. Dysphagia and odynophagia unchanged, with persistent mucositis/soft palate ulcerations. She also continues to have bloody diarrhea several times a day. No real abdominal pain. Denies respiratory symptoms, and states that she never had respiratory symptoms. No history of sinusitis, or bloody discharge from her nares. Objective: Valtrex 1 g p. O. Twice daily Afebrile Vital Signs Temp Pulse Resp BP Pulse Ox 37.3 C 90 16 156/70 H 94 03/14/18 08:21 03/14/18 08:21 03/14/18 08:21 03/14/18 08:47 03/14/18 08:21 Microbiology 03/13/18 19:05 JASMYNE Preparation - Final Tongue - Swab Laboratory Results 03/13/18 04:47 03/14/18 04:35 03/13/18 03/14/18 03/15/18 05:59 05:59 05:59 Intake Total 1420 1350 120 Balance 1420 1350 120 March 07: HSV PCR of the oral ulceration negative March 13 HSV PCR negative. Called micro lab: VZV also performed which was negative. CMV IgG positive, IgM negative, CMV blood PCR negative GI pathogen panel PCR negative - Physical Exam General Appearance: other (Looks tired.) EENT: other (Multiple small erosions posterior soft palate, with surrounding slough/mucositis covering the entire soft palate. There is also a small ulceration with surrounding slough underneath her upper lip. Posterior oropharynx itself does not look erythematous. The tongue has for a yellowish coating, but no erosions.) Respiratory: lungs clear Cardiac/Chest: tachycardia Abdomen: non-tender, soft Skin: No rash Neuro/Psych: oriented x 3 ICD10 Worksheet Patient Problems: Problems Problem Status Onset Mucositis Acute
[2018-03-14] MEDS ORDERED: IOPAMIDOL (ISOVUE-300) 100 ML BTL ONE (12:41)
--- NOTE | 2018-03-14 13:32 | ASMTCMCOM ---
CM Note CM Note Notes: Chart reviewed. Patient is 77 year old female admitted with nausea and weight loss. Lives alone in [place]. Being followed by hospital medicine and GI. Having workup for bloody stools. Needs remain to be determined at this time. CM to follow. Date Signed: 03/14/2018 01:14 PM Electronically Signed By:Katalina Ricci RN
[2018-03-14] MEDS: LOPERAMIDE HCL 2 MG CAP PO PRN (16:17)
--- NOTE | 2018-03-14 16:46 | HOSPPROG ---
Hospitalist Progress Note Assessment/Plan: * Oral ulcerations - unclear etiology -infection ruled out - negative HSV, JASMYNE, HIV -query autoimmune (vasculitis, SLE, UC) vs malignancy (?paraneoplastic) * LGIB - colitis vs. hemorrhoid -CT with possible colitis -d/w Dr. Davis - consider colonoscopy in 1-2 days * Gastritis -PPI * Biliary duct dilation -per Dr. Davis needs Endoscopic US with Dr. Arreguin * Hypernatremia -difficult to maintain oral intake due to severe dysphagia -IVF * Pancreatic cyst -f/u CT 6 months * Renal cyst vs. mass -f/u CT 6 months * Ovarian cyst -check pelvic US Subjective: Blood in stool increased last night. Mouth no better Objective: Vital Signs Temp Pulse Resp BP Pulse Ox 37.1 C 81 16 160/63 H 91 L 03/14/18 15:48 03/14/18 15:48 03/14/18 15:48 03/14/18 15:48 03/14/18 15:48 Microbiology 03/13/18 13:10 Herpes Simplex Virus I (PCR) - Final Oral - Mouth Hsv-1 Dna Not Detected Herpes Simplex Virus II (PCR) - Final Hsv-2 Dna Not Detected Varicella-Zoster Group DNA (PCR) - Final Vzv Dna Not Detected - Final 03/13/18 19:05 JASMYNE Preparation - Final Tongue - Swab Laboratory Results 03/13/18 04:47 03/14/18 04:35 03/13/18 03/14/18 03/15/18 05:59 05:59 05:59 Intake Total 1420 1350 120 Balance 1420 1350 120 PT 16.3 SEC (12.0-15.0) H 03/14/18 04:35 INR 1.29 (0.83-1.16) H 03/14/18 04:35 case d/w Dr. Davis and Corwin regarding path forward CT - biliary duct dilation, possible colitis - Physical Exam Constitutional: no apparent distress, appears nourished, not in pain Cardiovascular: regular rate and rhythym, no murmur, rub, or gallop Respiratory: no respiratory distress, no rales or rhonchi, clear to auscultation Gastrointestinal: normoactive bowel sounds, soft, non-tender abdomen, no palpable masses Skin: no rashes or abrasions, no fluctuance, no induration Neurologic: AAOx3, sensation intact bilaterally Psychiatric: interacting appropriately, not anxious, not encephalopathic, thought process linear ICD10 Worksheet Patient Problems: Problems Problem Status Onset Mucositis Acute
[2018-03-14] MEDS: traZODone 50 MG TAB PO SCH (21:01)
[2018-03-14] MEDS: ONDANSETRON DISINTEGRATING 4 MG TAB PO PRN (21:04)
[2018-03-15] MEDS: ONDANSETRON 4 MG/2 ML VIAL IVP PRN ×2 (00:21→07:20)
[2018-03-15 04:46] LABS: PLATELET COUNT 245 10^3/uL (150-400)
[2018-03-15] MEDS: 1/2 NS 1,000 ML IV SCH (05:23)
[2018-03-15] MEDS ORDERED: PEG 3350/NA SULF,BICARB,CL/KCL (GAVILYTE-G) 4000 ML BTL PO ONE (07:58)
--- NOTE | 2018-03-15 08:05 | SOAPPROG ---
SOAP Progress Note Assessment/Plan: Assessment: 1. Colitis/Bloody stool/Fatigue/Mouth Sores - etiology? - stool infectious w/u negative - CT with colitis - infectious, inflammatory, ischemic? - will plan colonoscopy tomorrow after prep through today and into the evening - if patient can not tolerate prep po, could consider NGT/Dobhoff placement to administer prep - npo p MN - will involve anesthesia for sedation, given comorbidities and higher sedation risk 2. PancreaticoBiliary findings of bile duct dilation and possible pancreatic cyst - likely incidental to current presentation - EUS vs MRCP to eval further once convalescent - defer this for now 03/15/18 08:05 Subjective: CC: bloody stool S: ongoing bloody diarrhea no fever feeling fatigued no appetite no cough no sob Objective: Vital Signs Temp Pulse Resp BP Pulse Ox 36.8 C 86 12 151/60 H 95 03/15/18 07:42 03/15/18 07:42 03/15/18 07:42 03/15/18 07:42 03/15/18 07:42 Microbiology 03/13/18 13:10 Herpes Simplex Virus I (PCR) - Final Oral - Mouth Hsv-1 Dna Not Detected Herpes Simplex Virus II (PCR) - Final Hsv-2 Dna Not Detected Varicella-Zoster Group DNA (PCR) - Final Vzv Dna Not Detected - Final Laboratory Results 03/15/18 04:24 03/15/18 04:24 03/14/18 03/15/18 03/16/18 05:59 05:59 05:59 Intake Total 1350 1477 1410 Balance 1350 1477 1410 PT 16.3 SEC (12.0-15.0) H 03/14/18 04:35 INR 1.29 (0.83-1.16) H 03/14/18 04:35 Physical Exam - Physical Exam General Appearance: WD/WN, alert, no apparent distress EENT: PERRL/EOMI Neck: full range of motion Respiratory: lungs clear, normal breath sounds Cardiac/Chest: regular rate, rhythm Abdomen: normal bowel sounds, non-tender, soft, No organomegaly, No pulsatile mass Skin: normal color Neuro/Psych: no motor/sensory deficits ICD10 Worksheet Patient Problems: Problems Problem Status Onset Mucositis Acute
[2018-03-15] MEDS: PANTOPRAZOLE SODIUM 40 MG TAB PO SCH (08:25)
[2018-03-15] MEDS: LOSARTAN POTASSIUM 25 MG TAB PO SCH ×2 (08:25→20:00)
[2018-03-15] MEDS ORDERED: PROTOCOL POTASSIUM 1 DOSE MISC PRN (08:32)
[2018-03-15] MEDS: ONDANSETRON DISINTEGRATING 4 MG TAB PO PRN (11:09)
[2018-03-15] MEDS: LORazepam 0.5 MG TAB PO PRN ×2 (12:56→19:50)
--- NOTE | 2018-03-15 13:47 | HOSPPROG ---
Hospitalist Progress Note Assessment/Plan: * Oral ulcerations - unclear etiology -infection ruled out - negative HSV, JASMYNE, HIV -query autoimmune (vasculitis, SLE, UC) vs malignancy (?paraneoplastic) * LGIB due to probable colitis -colonoscopy scheduled for tomorrow am * Gastritis -PPI * Biliary duct dilation -needs Endoscopic US with Dr. Arreguin * Hypernatremia -difficult to maintain oral intake due to severe dysphagia -IVF * Pancreatic cyst -f/u CT 6 months * Renal cyst vs. mass -f/u CT 6 months Subjective: Feels extremely weak and fatigued. Still with bloody diarrhea Objective: Vital Signs Temp Pulse Resp BP Pulse Ox 36.7 C 88 14 154/59 H 95 03/15/18 11:48 03/15/18 11:48 03/15/18 11:48 03/15/18 11:48 03/15/18 11:48 Microbiology 03/13/18 13:10 Herpes Simplex Virus I (PCR) - Final Oral - Mouth Hsv-1 Dna Not Detected Herpes Simplex Virus II (PCR) - Final Hsv-2 Dna Not Detected Varicella-Zoster Group DNA (PCR) - Final Vzv Dna Not Detected - Final Laboratory Results 03/15/18 04:24 03/15/18 04:24 03/14/18 03/15/18 03/16/18 05:59 05:59 05:59 Intake Total 1350 1477 1410 Balance 1350 1477 1410 PT 16.3 SEC (12.0-15.0) H 03/14/18 04:35 INR 1.29 (0.83-1.16) H 03/14/18 04:35 d/w Dr. Olivia - ID may start to follow peripherally as no infection found Pelvic US - no cysts, transvaginal US refused - Physical Exam Constitutional: no apparent distress, appears nourished, not in pain Cardiovascular: regular rate and rhythym, no murmur, rub, or gallop Respiratory: no respiratory distress, no rales or rhonchi, clear to auscultation Gastrointestinal: normoactive bowel sounds, soft, non-tender abdomen, no palpable masses Skin: no rashes or abrasions, no fluctuance, no induration Neurologic: AAOx3, sensation intact bilaterally Psychiatric: interacting appropriately, not anxious, not encephalopathic, thought process linear ICD10 Worksheet Patient Problems: Problems Problem Status Onset Mucositis Acute
[2018-03-15] MEDS ORDERED: IOPAMIDOL (ISOVUE 370) 100 ML BTL IV ONE (14:56)
[2018-03-15] MEDS ORDERED: POTASSIUM CL 20 MEQ TAB PO ONE (15:15)
--- NOTE | 2018-03-15 16:43 | PDRADPN ---
Radiology Procedure Note Date of Procedure: 03/15/18 Radiologist: Jake Perez Anesthesia: Local (Specify) Pre-op Diagnosis: colitis Post-op Diagnosis: same Indication: poor PIV Procedure: RUE DL PICC Finding(s): 38cm DL RUE PICC placed via basilic vein. aspirates and flushes well. Inf/Abcess present in the surg proc area at time of surgery?: No EBL: Minimal Complications: none
[2018-03-15] MEDS: traZODone 50 MG TAB PO SCH (20:34)
[2018-03-16] MEDS: POTASSIUM Cl (KCl) 50 ML IV SCH ×3 (00:06→02:46)
[2018-03-16 04:42] LABS: PLATELET COUNT 299 10^3/uL (150-400)
[2018-03-16] MEDS: LORazepam 0.5 MG TAB PO PRN ×3 (07:25→20:17)
[2018-03-16] MEDS: LOSARTAN POTASSIUM 25 MG TAB PO SCH ×2 (08:17→20:16)
[2018-03-16] MEDS: PANTOPRAZOLE SODIUM 40 MG TAB PO SCH (08:17)
--- NOTE | 2018-03-16 08:55 | SOAPPROG ---
SOAP Progress Note Assessment/Plan: Assessment: 1. Colitis/Bloody stool/Fatigue/Mouth Sores - etiology? - stool infectious w/u negative - CT with colitis - infectious, inflammatory, ischemic? - colonoscopy plans underway - unfortunately, patient was not able to tolerate full prep yesterday - will continue to prep and reconsider colonoscopy on 03/17 (time TBD) - can take prep po or via NGT, per patient preference - important to have adequate prep in order to optimize diagnostic yield of colonoscopy - can have clear liquids today, and resume prep (via NGT) this evening ~1700. - will assess stool outpt in AM on 03/17, and if prep seems adequate proceed with colonoscopy on 03/17 2. Pancreaticobiliary findings of bile duct dilation and possible pancreatic cyst - likely incidental to current presentation, EUS vs MRCP to eval further once convalescent, defer this for now - will follow 03/16/18 08:51 Subjective: CC: f/u colitis S: frustrated about delay in doing colonoscopy no fever mild abd pain no SOB or CP ongoing bloody diarrhea Objective: Vital Signs Temp Pulse Resp BP Pulse Ox 36.6 C 97 19 159/86 H 91 L 03/16/18 04:21 03/16/18 08:25 03/16/18 08:25 03/16/18 08:25 03/16/18 08:25 Laboratory Results 03/16/18 04:30 03/16/18 04:30 03/15/18 03/16/18 03/17/18 05:59 05:59 05:59 Intake Total 1477 1650 Balance 1477 1650 PT 16.3 SEC (12.0-15.0) H 03/14/18 04:35 INR 1.29 (0.83-1.16) H 03/14/18 04:35 Microbiology 03/12/18 15:30 Stool Gastrointestinal Tract Panel (PCR) - Final No Organism Detected Laboratory Tests 03/12/18 03/13/18 03/14/18 05:08 04:47 04:35 Hgb 11.3 L 12.2 L Hct 35.6 L 37.0 L INR 1.29 H Enterovirus Source Enterovirus RNA (PCR) 03/14/18 03/14/18 03/15/18 10:55 17:30 04:24 Hgb 11.8 L 10.5 L Hct 35.6 L 32.2 L INR Enterovirus Source Pending Enterovirus RNA (PCR) Pending 03/16/18 04:30 Hgb 11.1 L Hct 33.8 L INR Enterovirus Source Enterovirus RNA (PCR) Physical Exam - Physical Exam General Appearance: WD/WN, alert, no apparent distress EENT: PERRL/EOMI, other (NGT in place) Neck: full range of motion Respiratory: chest non-tender, lungs clear Cardiac/Chest: normal peripheral pulses Abdomen: normal bowel sounds Skin: normal color Extremities: normal range of motion Neuro/Psych: no motor/sensory deficits ICD10 Worksheet Patient Problems: Problems Problem Status Onset Mucositis Acute
--- NOTE | 2018-03-16 11:25 | ASMTCMCOM ---
CM Note CM Note Notes: Chart reviewed. Colonoscopy delayed due to difficulty with prep. NG tube placed and prep to begin later today. No clear diagnosis yet. Patient offered emotional support. She lives alone. She tells me she relies on her brother and sister in law as well as her daughter Valentina who lives in [place]. The patient's son Jono is her MDPOA and he lives in [place]. Per the patient her baseball player has copy. I requested that when she felt well enough to ask family to obtain a copy. She is frustrated that no diagnosis has been made yet. Plan: TBD Date Signed: 03/16/2018 11:24 AM Electronically Signed By:Katalina Ricci RN
--- NOTE | 2018-03-16 13:43 | PCMIDPN ---
Assessment/Plan: 1. Severe erosive soft palate ulcerations with surrounding slough/mucositis and concomitant bloody diarrhea: Enteroviral plasma PCR negative. Strongly suspect that oral ulcerations are a para-phenomenon of underlying inflammatory bowel disease, likely ulcerative colitis. Testing for HSV and CMV has also been unrevealing. Please call Infectious Disease should any of her additional testing that is pending (RPR, enteroviral PCR of the oral ulcerations) turn positive. Subjective: Apparently could not tolerate bowel prep for colonoscopy. Plans on doing this tomorrow. Objective: Vital Signs Temp Pulse Resp BP Pulse Ox 37 C 90 18 168/80 H 98 03/16/18 11:48 03/16/18 11:48 03/16/18 11:48 03/16/18 11:48 03/16/18 11:48 Laboratory Results 03/16/18 04:30 03/16/18 04:30 03/15/18 03/16/18 03/17/18 05:59 05:59 05:59 Intake Total 1477 1650 Balance 1477 1650 ESR 49 MM/HR (0-30) H 03/15/18 04:24 C-Reactive Protein 189.0 mg/L (<10.0) H 03/15/18 04:24 Enteroviral PCR of the plasma negative ICD10 Worksheet Patient Problems: Problems Problem Status Onset Mucositis Acute
[2018-03-16] MEDS: ONDANSETRON 4 MG/2 ML VIAL IVP PRN ×2 (13:52→20:19)
--- NOTE | 2018-03-16 15:14 | HOSPPROG ---
Hospitalist Progress Note Assessment/Plan: * Oral ulcerations - unclear etiology -infection ruled out - negative HSV, JASMYNE, HIV -query autoimmune (vasculitis, SLE, UC) vs malignancy (?paraneoplastic) -MPO positive - will d/w rheum in am * LGIB due to probable colitis -colonoscopy scheduled for tomorrow am -NGT placed for prep * Gastritis -PPI * Biliary duct dilation -needs Endoscopic US with Dr. Arreguin * Hypernatremia -difficult to maintain oral intake due to severe dysphagia -IVF * Pancreatic cyst -f/u CT 6 months * Renal cyst vs. mass -f/u CT 6 months Subjective: Feels terrible Objective: Vital Signs Temp Pulse Resp BP Pulse Ox 37 C 90 18 168/80 H 98 03/16/18 11:48 03/16/18 11:48 03/16/18 11:48 03/16/18 11:48 03/16/18 11:48 Laboratory Results 03/16/18 04:30 03/16/18 04:30 03/15/18 03/16/18 03/17/18 05:59 05:59 05:59 Intake Total 1477 1650 Balance 1477 1650 PT 16.3 SEC (12.0-15.0) H 03/14/18 04:35 INR 1.29 (0.83-1.16) H 03/14/18 04:35 CTA chest - no PE AXR viewed, my personal interpretation is - normal bowel gas pattern MPO antibody positive d/w Dr. Olivia regarding MPO positive - Physical Exam Constitutional: no apparent distress, appears nourished, not in pain Cardiovascular: regular rate and rhythym, no murmur, rub, or gallop Respiratory: no respiratory distress, no rales or rhonchi, clear to auscultation Gastrointestinal: normoactive bowel sounds, soft, non-tender abdomen, no palpable masses Skin: no rashes or abrasions, no fluctuance, no induration Neurologic: AAOx3, sensation intact bilaterally Psychiatric: interacting appropriately, not anxious, not encephalopathic, thought process linear ICD10 Worksheet Patient Problems: Problems Problem Status Onset Mucositis Acute
[2018-03-16] MEDS: traZODone 50 MG TAB PO SCH (20:40)
[2018-03-16] MEDS ORDERED: POTASSIUM Cl (KCl) 100 ML IV ONE (23:00)
[2018-03-17] MEDS ORDERED: POTASSIUM Cl (KCl) 10 MEQ in D5W 50 ML IV ONE (01:00)
[2018-03-17] MEDS: ONDANSETRON 4 MG/2 ML VIAL IVP PRN ×2 (01:11→07:20)
[2018-03-17] MEDS: LORazepam 0.5 MG TAB PO PRN ×3 (04:42→19:16)
[2018-03-17] MEDS ORDERED: PROPOFOL 200 MG/20 ML VIAL ONE (07:42)
[2018-03-17] MEDS ORDERED: fentaNYL 100 MCG/2 ML INJ ONE (07:46)
--- NOTE | 2018-03-17 08:00 | PDANEPAE ---
ANE History of Present Illness 77 year old female for colonoscopy for bloody stools. History of htn and breast cancer. ANE Past Medical History - Cardiovascular History Hx Hypertension: Yes Hx Arrhythmias: No Hx Chest Pain: No Hx Coronary Artery / Peripheral Vascular Disease: No Hx CHF / Valvular Disease: No Hx Palpitations: No - Pulmonary History Hx COPD: No Hx Asthma/Reactive Airway Disease: No Hx Recent Upper Respiratory Infection: No Hx Oxygen in Use at Home: No Hx Sleep Apnea: No Sleep Apnea Screening Result - Last Documented: Negative - Neurologic History Hx Cerebrovascular Accident: No Hx Seizures: No Hx Dementia: No - Endocrine History Hx Diabetes: No - Renal History Hx Renal Disorders: No - Liver History Hx Hepatic Disorders: No - Neurological & Psychiatric Hx Hx Neurological and Psychiatric Disorders: No Neurological / Psychiatric History Comment: spouse w/Alzheimers February 2017 - Cancer History Hx Cancer: Yes Cancer History Comment: breast - Congenital Disorder History Hx Congenital Disorders: No - GI History Hx Gastrointestinal Disorders: Yes Gastrointestinal History Comment: internal hemorrhoids - Other Health History Other Health History: PE s/p L partial mastectomy -placed on Warfarin x 6 mos;. OA R knee - Chronic Pain History Chronic Pain: No - Surgical History Prior Surgeries: L partial mastectomy 2011. R br mastectomy w/reconstruction ( TRAM Flap). R lumpectomy. intestinal resection. w/colostomy. colostomy reversal. L hip ORIF ANE Review of Systems Review of Systems: ANE Patient History - Allergies Allergies/Adverse Reactions: oxycodone HCl [From Percocet] Allergy (Verified 06/27/17 12:06) Sulfa (Sulfonamide Antibiotics) Allergy (Verified 06/27/17 12:06) Vomiting - Home Medications Home Medications: Ascorbic Acid [Vitamin C 500 mg (*)] 1,000 mg PO DAILY 04/04/17 [Last Taken ] Cholecalciferol Vit D3 [Vitamin D3 (*)] 1,000 units PO DAILY 04/04/17 [Last Taken 03/09/18] Cyanocobalamin [Vitamin B12 (*)] 1,000 mcg PO DAILY 04/04/17 [Last Taken ] Herbals/Supplements -Info Only 1 ea PO DAILY 04/04/17 [Last Taken 04/08/17] Losartan Potassium [Cozaar 25 mg (*)] 25 mg PO DAILY 04/04/17 [Last Taken 05:00] Acetaminophen [Tylenol 325mg (*)] 325 mg PO Q6 PRN 03/11/18 [Last Taken Unknown] - Smoking Hx Smoking Status: Former smoker ANE Labs/Vital Signs - Labs Result Diagrams: 03/17/18 04:30 03/17/18 04:30 - Vital Signs Blood Pressure: 149/87 Heart Rate: 98 Respiratory Rate: 18 O2 Sat (%): 93 Height: 177.8 cm Weight: 74.6 kg ANE Physical Exam - Airway Neck exam: FROM Mallampati Score: Class 3 Mouth exam: normal dental/mouth exam - Pulmonary Pulmonary: no respiratory distress - Cardiovascular Cardiovascular: regular rate and rhythym - ASA Status ASA Status: III
--- NOTE | 2018-03-17 08:34 | SUROPNOTE ---
[facility] Operative Report - Surgery BRIEF COLON REPORT MEDS: per anesthesia INDICATION: bloody stool, diarrhea COMPLICATIONS: none FINDINGS: - severe, confluent colitis from rectum to transverse colon - patchy colitis from transverse colon to cecum - normal ileum - s/p left hemicolectomy with colo-colonic anastamosis IMPRESSION/RECS 1. Colitis - findings consistent with IBD, favor PALMER over CD - path pending - will start empiric therapy with IV steroids and mesalamine (PO and TX) - differential includes ischemia, infection, malignancy - but these seem less likely - will follow
--- NOTE | 2018-03-17 08:42 | GIREPORT ---
[facility] - Endoscopy Department Patient Name: Nichelle Patiño Procedure Date: 03/17/2018 7:49 AM Patient Type: Inpatient Attending MD/ ER Physician: Grey Duncan MD Procedure: Colonoscopy Indications: Generalized abdominal pain, Chronic diarrhea, Hematochezia, Abnormal CT of the GI tract Providers: Grey Duncan MD Medicines: Sedation Administered by an Anesthesia Professional Complications: No immediate complications. Description of Procedure: After obtaining informed consent, the scope was passed under direct vis ion. Throughout the procedure, the patient's blood pressure, pulse, and oxyg en saturations were monitored continuously. The Colonoscope with irrigatio n channel was introduced through the anus and advanced to the terminal il eum. The colonoscopy was performed without difficulty. The patient tolerated the procedure well. The quality of the bowel preparation was good. The term inal ileum, ileocecal valve, appendiceal orifice, and rectum were photograph ed. Findings: There was evidence of a prior end-to-side colo-colonic anastomosis in t he sigmoid colon. This was patent and was characterized by inflammation. T he anastomosis was traversed. Diffuse and scattered severe inflammation characterized by congestion (edema), erosions, erythema, confluent ulcerations and deep ulcerations was found from rectum to cecum. Biopsies were taken with a cold forceps for histology. The terminal ileum appeared normal. Biopsies were taken with a cold for ceps for histology. Estimated Blood Loss: Estimated blood loss: none. Post Op Diagnosis: - Patent end-to-side colo-colonic anastomosis, characterized by inflamm ation. - Diffuse and scattered severe inflammation was found from rectum to ce cum secondary to inflammatory bowel disease and secondary to pancolitis. Biopsied. - The examined portion of the ileum was normal. Biopsied. Recommendation: - Return patient to [facility] for ongoing care. - Await pathology results. - Clinical suspicion for IBD is high. Will start IV steroids, PO mesala mine, and Rowasa enema. - Favor Ulcerative Colitis, but Crohn's, as well as other sources of co litis (ischemia, malignancy, infection), are on differential diagnosis. Attending Participation: I personally performed the entire procedure. Grey Duncan MD Grey Duncan MD 03/17/2018 8:41:58 AM This report has been signed electronicallyGrey Duncan MD Number of Addenda: 0 Note Initiated On: 03/17/2018 7:49 AM Total Procedure Duration Time 0 hours 14 minutes 20 seconds [email or web address]
[2018-03-17] MEDS ORDERED: POTASSIUM CL 10 MEQ TAB PO ONE (09:31)
[2018-03-17] MEDS ORDERED: NALOXONE HCL 0.4 MG/ML INJ IVP PRN (10:56)
--- NOTE | 2018-03-17 10:56 | POSTANESTH ---
Post Anesthetic Evaluation Cardiovascular Status: Normal, Stable Respiratory Status: Normal, Stable Level of Consciousness/Mental Status: Can Participate in Eval Pain Control: Adequate, Prn Tx Ordered Nausea/Vomiting Control: Adequate, Prn Tx Ordered Complications Possibly Related to Anesthesia: None Noted
[2018-03-17] MEDS: LOSARTAN POTASSIUM 25 MG TAB PO SCH ×2 (10:58→19:16)
[2018-03-17] MEDS: PANTOPRAZOLE SODIUM 40 MG TAB PO SCH (10:58)
[2018-03-17] MEDS: MESALAMINE 800 MG TAB.DR PO SCH ×3 (10:59→23:32)
[2018-03-17] MEDS: methylPREDNISolone SOD SUCC 40 MG/ML VIAL IVP SCH ×2 (15:10→23:33)
--- NOTE | 2018-03-17 17:28 | ASMTCMCOM ---
CM Note CM Note Notes: Chart reviewed. Patient s/p colonoscopy which reaveal sever IBD of unknown etiology . She is tearful and frustrated. Spoke with her daughter Valentina ([phone]) Cell phone. Her son Jono is POA ([phone]). She is quite weak and deconditioned.- May need services. CM to follow. Plan: TBD Date Signed: 03/17/2018 05:28 PM Electronically Signed By:Katalina Ricci RN
--- NOTE | 2018-03-17 18:24 | HOSPPROG ---
Hospitalist Progress Note Assessment/Plan: * Colitis - suspect UC -IV solumedrol + mesalamine -await biopsy * Mouth ulcers -suspect due to UC -infection ruled out * p-ANCA positive -suspect due to UC -await biopsy rule out vasculitis * Gastritis -PPI * Biliary duct dilation -needs Endoscopic US with Dr. Arreguin * Hypernatremia - resolved * Pancreatic cyst -f/u CT 6 months * Renal cyst vs. mass -f/u CT 6 months Subjective: Still feels extremely weak Objective: Vital Signs Temp Pulse Resp BP Pulse Ox 37.4 C 92 16 165/74 H 96 03/17/18 15:16 03/17/18 15:16 03/17/18 15:16 03/17/18 15:16 03/17/18 15:16 Microbiology 03/11/18 19:48 Blood Culture - Final Blood 03/11/18 19:58 Blood Culture - Final Blood Laboratory Results 03/17/18 04:30 03/17/18 04:30 03/16/18 03/17/18 03/18/18 05:59 05:59 05:59 Intake Total 1650 250 350 Output Total 300 275 Balance 1650 -50 75 PT 16.3 SEC (12.0-15.0) H 03/14/18 04:35 INR 1.29 (0.83-1.16) H 03/14/18 04:35 case d/w Dr. Duncan and Dr. Olivia regarding positive p- ANCA colonoscopy report reviewed - extensive colitis - Physical Exam Constitutional: no apparent distress, appears nourished, not in pain Ears, Nose, Mouth, Throat: oral ulcer (much better) Cardiovascular: regular rate and rhythym, no murmur, rub, or gallop Respiratory: no respiratory distress, no rales or rhonchi, clear to auscultation Gastrointestinal: normoactive bowel sounds, soft, non-tender abdomen, no palpable masses Skin: no rashes or abrasions, no fluctuance, no induration Neurologic: AAOx3, sensation intact bilaterally Psychiatric: interacting appropriately, not anxious, not encephalopathic, thought process linear ICD10 Worksheet Patient Problems: Problems Problem Status Onset Mucositis Acute
[2018-03-17] MEDS: MESALAMINE 4 GM/60 ML ENEMA BOTTLE PR SCH ×2 (22:46→23:33)
[2018-03-17] MEDS: traZODone 50 MG TAB PO SCH (23:33)
[2018-03-18] MEDS ORDERED: POTASSIUM CL 10 MEQ TAB PO ONE ×3 (00:05→19:58)
[2018-03-18] MEDS: methylPREDNISolone SOD SUCC 40 MG/ML VIAL IVP SCH ×3 (05:33→22:10)
[2018-03-18 05:47] LABS: PLATELET COUNT 243 10^3/uL (150-400)
[2018-03-18] MEDS: MESALAMINE 800 MG TAB.DR PO SCH ×3 (09:06→22:09)
[2018-03-18] MEDS: LORazepam 0.5 MG TAB PO PRN ×2 (09:06→15:36)
[2018-03-18] MEDS: PANTOPRAZOLE SODIUM 40 MG TAB PO SCH (09:07)
[2018-03-18] MEDS: LOSARTAN POTASSIUM 25 MG TAB PO SCH ×2 (09:07→22:09)
[2018-03-18] MEDS: ONDANSETRON DISINTEGRATING 4 MG TAB PO PRN ×2 (09:11→17:18)
[2018-03-18] MEDS: LOPERAMIDE HCL 2 MG CAP PO PRN ×2 (09:11→17:18)
[2018-03-18] MEDS: ALTEPLASE 2 MG VIAL IVP PRN ×2 (11:16→22:24)
--- NOTE | 2018-03-18 13:28 | HOSPPROG ---
Hospitalist Progress Note Assessment/Plan: #Suspected ulcerative colitis -path pending. Sxs improving on IV steroids #p-ANCA positive: awaiting path #Mouth ulcers: negative cultures #Gastritis: PPI #Biliary ductal dilatation: FU with Dr. Arreguin for endoscopic US #Pancreatic and renal cysts: FU imaging 6 months #Hypernatremia: resolved #Deconditioning: will not go to rehab. Will cont PT/OT here #Diet: Subjective: "so tired" Objective: Vital Signs Temp Pulse Resp BP Pulse Ox 36.4 C 89 15 163/89 H 95 03/18/18 08:00 03/18/18 11:34 03/18/18 11:34 03/18/18 11:34 03/18/18 11:34 Microbiology 03/11/18 19:48 Blood Culture - Final Blood 03/11/18 19:58 Blood Culture - Final Blood Laboratory Results 03/18/18 05:40 03/18/18 05:40 03/17/18 03/18/18 03/19/18 05:59 05:59 05:59 Intake Total 250 950 Output Total 300 275 Balance -50 675 PT 16.3 SEC (12.0-15.0) H 03/14/18 04:35 INR 1.29 (0.83-1.16) H 03/14/18 04:35 - Physical Exam Constitutional: other (appears fatigued) Ears, Nose, Mouth, Throat: moist mucous membranes Cardiovascular: regular rate and rhythym Respiratory: no respiratory distress Gastrointestinal: normoactive bowel sounds, soft, non-tender abdomen, No tenderness Genitourinary: no bladder fullness Skin: warm Musculoskeletal: full muscle strength Neurologic: AAOx3, CN II-XII Intact Psychiatric: interacting appropriately, flat affect ICD10 Worksheet Patient Problems: Problems Problem Status Onset Mucositis Acute
--- NOTE | 2018-03-18 15:40 | SOAPPROG ---
ALESSANDRO Progress Note Assessment/Plan: Assessment: 1. Colitis/Bloody stool/Fatigue/Mouth Sores - suspect IBD - p-ANCA, fwiw, is a marker in UC as well - feeling somewhat better today 2. Pancreaticobiliary findings of bile duct dilation and possible pancreatic cyst - likely incidental to current presentation, EUS vs MRCP to eval further once convalescent, defer this for now PLAN: 1. continue IV solumedrol 2. continue po mesalamine 3. continue rowasa enema 4. monitor symptoms 5. pt will need GI f/u as outpt, and would prefer [facility] location. i will help to arrange this closer to discharge 6. anticipate 48-72hr more in hospital to be sure colitis improving. - will follow, call with questions 03/18/18 15:37 Subjective: CC: colitis S: less pain, less diarrhea no nausea improved appetite swallowing better still with loose bloody BMs Objective: Vital Signs Temp Pulse Resp BP Pulse Ox 36.4 C 89 15 163/89 H 95 03/18/18 08:00 03/18/18 11:34 03/18/18 11:34 03/18/18 11:34 03/18/18 11:34 Laboratory Results 03/18/18 05:40 03/18/18 05:40 03/17/18 03/18/18 03/19/18 05:59 05:59 05:59 Intake Total 250 950 Output Total 300 275 Balance -50 675 PT 16.3 SEC (12.0-15.0) H 03/14/18 04:35 INR 1.29 (0.83-1.16) H 03/14/18 04:35 Physical Exam - Physical Exam General Appearance: alert EENT: PERRL/EOMI Neck: full range of motion Respiratory: lungs clear Cardiac/Chest: regular rate, rhythm, No edema, No gallop Abdomen: normal bowel sounds, soft, No non-tender Skin: normal color Extremities: normal range of motion Neuro/Psych: no motor/sensory deficits ICD10 Worksheet Patient Problems: Problems Problem Status Onset Mucositis Acute
[2018-03-18] MEDS: hydrALAZINE 25 MG TAB PO PRN (18:22)
[2018-03-18] MEDS: traZODone 50 MG TAB PO SCH (22:09)
[2018-03-18] MEDS: MESALAMINE 4 GM/60 ML ENEMA BOTTLE PR SCH (22:10)
[2018-03-19] MEDS: hydrALAZINE 25 MG TAB PO PRN ×2 (04:57→21:09)
[2018-03-19] MEDS: methylPREDNISolone SOD SUCC 40 MG/ML VIAL IVP SCH ×3 (04:57→21:11)
[2018-03-19] MEDS: LORazepam 0.5 MG TAB PO PRN ×3 (08:31→21:32)
[2018-03-19] MEDS: MESALAMINE 800 MG TAB.DR PO SCH ×3 (08:31→21:09)
[2018-03-19] MEDS: PANTOPRAZOLE SODIUM 40 MG TAB PO SCH (08:31)
[2018-03-19] MEDS: LOSARTAN POTASSIUM 25 MG TAB PO SCH ×2 (08:32→21:10)
[2018-03-19] MEDS ORDERED: amLODIPine BESYLATE 5 MG TAB PO SCH (09:00)
--- NOTE | 2018-03-19 11:02 | SOAPPROG ---
ALESSANDRO Progress Note Assessment/Plan: Assessment: 1. Colitis/Bloody stool/Fatigue/Mouth Sores - suspect IBD - slow improvement the last 48hrs 2. Pancreaticobiliary findings of bile duct dilation and possible pancreatic cyst - likely incidental to current presentation, EUS vs MRCP to eval further once convalescent, defer this for now PLAN: 1. continue IV solumedrol 2. continue po mesalamine 3. continue rowasa enema 4. monitor symptoms 5. can consider change to po prednisone in the next 48-72hrs? sooner if she is improving faster. - will follow, call with questions Subjective: CC: diarrhea, bloody stool s: feeling slowly better tolerating po still with frequent, urgent BMs with diarrhea and blood no fever no chills no vomiting Objective: Vital Signs Temp Pulse Resp BP Pulse Ox 36.7 C 83 16 186/64 H 98 03/19/18 07:59 03/19/18 10:51 03/19/18 10:51 03/19/18 10:51 03/19/18 10:51 Laboratory Results 03/19/18 04:39 03/19/18 04:39 03/18/18 03/19/18 03/20/18 05:59 05:59 05:59 Intake Total 950 1300 300 Output Total 275 500 50 Balance 675 800 250 PT 16.3 SEC (12.0-15.0) H 03/14/18 04:35 INR 1.29 (0.83-1.16) H 03/14/18 04:35 Physical Exam - Physical Exam General Appearance: alert EENT: PERRL/EOMI Neck: full range of motion Respiratory: lungs clear, normal breath sounds Cardiac/Chest: regular rate, rhythm Abdomen: normal bowel sounds, soft Skin: normal color Extremities: normal range of motion Neuro/Psych: no motor/sensory deficits ICD10 Worksheet Patient Problems: Problems Problem Status Onset Mucositis Acute
--- NOTE | 2018-03-19 13:29 | HOSPPROG ---
Hospitalist Progress Note Assessment/Plan: #Colitis/mouth ulcers -path showing chronic colitis. Sxs improving on IV steroids. Will change to pred in next few days #Hypertensive urgency: no end-organ damage. BP from legs may not be as accurate. Cont Losartan, added Norvasc, PRN Hydral #h/o breast cancer: s/p mastectomy #Normocytic anemia: H/H stable #Gastritis: PPI #Biliary ductal dilatation: FU with Dr. Arreguin for endoscopic US #Pancreatic and renal cysts: FU imaging 6 months #Hypernatremia: resolved #h/o breast cancer: s/p mastectomy #Deconditioning: will not go to rehab. Will cont PT/OT here #Diet: regular #Disp: cont inpatient admission for IV steroids, PT Subjective: "Feels jittery", tired Objective: Vital Signs Temp Pulse Resp BP Pulse Ox 36.6 C 83 16 172/72 H 97 03/19/18 12:55 03/19/18 12:55 03/19/18 12:55 03/19/18 12:55 03/19/18 12:55 Laboratory Results 03/19/18 04:39 03/19/18 04:39 03/18/18 03/19/18 03/20/18 05:59 05:59 05:59 Intake Total 950 1300 300 Output Total 275 500 50 Balance 675 800 250 PT 16.3 SEC (12.0-15.0) H 03/14/18 04:35 INR 1.29 (0.83-1.16) H 03/14/18 04:35 - Time Spent With Patient Time Spent with Patient: greater than 35 minutes Time Spent with Patient: Greater than 35 minutes spent on this patients care, greater than 50% of time spent counseling, educating, and coordinating care regarding the above mentioned plan. - Physical Exam Constitutional: other (pale, sitting up in bed eating lunch) Eyes: PERRL Ears, Nose, Mouth, Throat: moist mucous membranes Cardiovascular: regular rate and rhythym Respiratory: no respiratory distress Gastrointestinal: normoactive bowel sounds, soft, non-tender abdomen, No tenderness Genitourinary: no bladder fullness Skin: warm Neurologic: AAOx3, CN II-XII Intact Psychiatric: anxious, flat affect ICD10 Worksheet Patient Problems: Problems Problem Status Onset Mucositis Acute
--- NOTE | 2018-03-19 16:05 | ASMTCMCOM ---
CM Note CM Note Notes: OT/PT rec SNF vs HC. CM will f/u with pt tomorrow. Date Signed: 03/19/2018 04:04 PM Electronically Signed By:Kristine Gonzalez LCSW
[2018-03-19] MEDS: traZODone 50 MG TAB PO SCH (21:09)
[2018-03-19] MEDS: MESALAMINE 4 GM/60 ML ENEMA BOTTLE PR SCH (21:11)
[2018-03-20] MEDS: methylPREDNISolone SOD SUCC 40 MG/ML VIAL IVP SCH ×3 (04:36→21:15)
[2018-03-20] MEDS: LORazepam 0.5 MG TAB PO PRN ×3 (04:36→17:16)
[2018-03-20] MEDS: PANTOPRAZOLE SODIUM 40 MG TAB PO SCH (09:32)
[2018-03-20] MEDS: MESALAMINE 800 MG TAB.DR PO SCH ×3 (09:33→21:15)
[2018-03-20] MEDS: LOSARTAN POTASSIUM 25 MG TAB PO SCH ×2 (09:33→21:15)
--- NOTE | 2018-03-20 10:55 | HOSPPROG ---
Hospitalist Progress Note Assessment/Plan: #Colitis/mouth ulcers -path showing chronic colitis. Symptoms nearly resolved. Change to prednisone today #Hypertensive urgency: BP from legs may not be as accurate. Cont Losartan, increase Norvasc today, PRN Hydral #h/o breast cancer: s/p mastectomy #Normocytic anemia: H/H stable #Gastritis: PPI #Biliary ductal dilatation: FU with Dr. Arreguin for endoscopic US #Pancreatic and renal cysts: FU imaging 6 months #Hypernatremia: resolved #h/o breast cancer: s/p mastectomy #Deconditioning: declines rehab, so will need home PT/OT #Diet: regular #Disp: cont inpatient admission for IV steroids, PT Subjective: less frequent stools, min blood. No pain Objective: Vital Signs Temp Pulse Resp BP Pulse Ox 36.4 C 83 18 179/90 H 95 03/20/18 08:00 03/20/18 08:00 03/20/18 08:00 03/20/18 09:33 03/20/18 08:00 Laboratory Results 03/19/18 04:39 03/20/18 04:40 03/19/18 03/20/18 03/21/18 05:59 05:59 05:59 Intake Total 1300 1130 Output Total 500 800 Balance 800 330 PT 16.3 SEC (12.0-15.0) H 03/14/18 04:35 INR 1.29 (0.83-1.16) H 03/14/18 04:35 - Time Spent With Patient Time Spent with Patient: greater than 35 minutes Time Spent with Patient: Greater than 35 minutes spent on this patients care, greater than 50% of time spent counseling, educating, and coordinating care regarding the above mentioned plan. - Physical Exam Constitutional: other (pale, fatigued) Ears, Nose, Mouth, Throat: moist mucous membranes Cardiovascular: regular rate and rhythym Respiratory: no respiratory distress, no rales or rhonchi Gastrointestinal: normoactive bowel sounds, soft, non-tender abdomen, No tenderness, No distension Genitourinary: no bladder fullness Skin: warm Musculoskeletal: full muscle strength Neurologic: AAOx3, CN II-XII Intact Psychiatric: interacting appropriately ICD10 Worksheet Patient Problems: Problems Problem Status Onset Mucositis Acute
--- NOTE | 2018-03-20 11:11 | SOAPPROG ---
ALESSANDRO Progress Note Assessment/Plan: Assessment: 1. Colitis/Bloody stool/Fatigue/Mouth Sores - suspect IBD - continued gradual improvement 2. Pancreaticobiliary findings of bile duct dilation and possible pancreatic cyst - likely incidental to current presentation, EUS vs MRCP to eval further once convalescent, defer this for now PLAN: 1. continue IV solumedrol 2. continue po mesalamine 3. continue rowasa enema 4. monitor symptoms 5. continue regular diet 6. given severity of colitis, prefer to continue solumedrol an additional 24- 48hrs. Will consider change to oral prednisone tomorrow or saturday, pending clinical course. need to avoid risk of relapse of colitis - will follow, call with questions Subjective: CC: colitis S: eating without as much difficulty no fever still some tenesmus, but decreased frequency of BMs with less blood no nausea mild ongoing abd pain Objective: Vital Signs Temp Pulse Resp BP Pulse Ox 36.4 C 83 18 179/90 H 95 03/20/18 08:00 03/20/18 08:00 03/20/18 08:00 03/20/18 09:33 03/20/18 08:00 Laboratory Results 03/19/18 04:39 03/20/18 04:40 03/19/18 03/20/18 03/21/18 05:59 05:59 05:59 Intake Total 1300 1130 Output Total 500 800 Balance 800 330 PT 16.3 SEC (12.0-15.0) H 03/14/18 04:35 INR 1.29 (0.83-1.16) H 03/14/18 04:35 Physical Exam - Physical Exam General Appearance: alert EENT: PERRL/EOMI Neck: full range of motion Respiratory: lungs clear Cardiac/Chest: normal peripheral pulses, regular rate, rhythm Abdomen: normal bowel sounds, soft, No non-tender, No organomegaly Skin: normal color Extremities: normal range of motion Neuro/Psych: no motor/sensory deficits ICD10 Worksheet Patient Problems: Problems Problem Status Onset Mucositis Acute
[2018-03-20] MEDS: hydrALAZINE 25 MG TAB PO PRN (12:01)
[2018-03-20] MEDS ORDERED: predniSONE 20 MG TAB PO SCH (14:00)
[2018-03-20] MEDS: traZODone 50 MG TAB PO SCH (21:15)
[2018-03-20] MEDS: MESALAMINE 4 GM/60 ML ENEMA BOTTLE PR SCH (21:18)
[2018-03-21] MEDS: LORazepam 0.5 MG TAB PO PRN ×3 (03:18→16:50)
[2018-03-21] MEDS: methylPREDNISolone SOD SUCC 40 MG/ML VIAL IVP SCH ×3 (06:08→21:35)
[2018-03-21] MEDS: LOSARTAN POTASSIUM 25 MG TAB PO SCH ×2 (08:36→20:06)
[2018-03-21] MEDS: PANTOPRAZOLE SODIUM 40 MG TAB PO SCH (08:37)
[2018-03-21] MEDS: MESALAMINE 800 MG TAB.DR PO SCH ×3 (08:37→21:35)
--- NOTE | 2018-03-21 12:53 | HOSPPROG ---
Hospitalist Progress Note Assessment/Plan: # colitis - likely d/t IBD - cont steroids per GI - currently on IV - cont Rowasa enema and asacol # oral ulcerations - same process as above? # gastritis - PPI # htn - from leg reading; certainly may be exacerbated by steroids - cont norvasc, cozaar, hydral prn # biliary ductal dilation - needs ERCP/EUS or MRCP at some point # pancreatic cyst - follow up via imaging vs ERCP # L adnexal cysts # L upper pole renal nodule - f/u CT 6 months # hx breast cancer s/p mastectomy # anemia - stable Subjective: feels slightly better today; had 2 BMs overnight Objective: Vital Signs Temp Pulse Resp BP Pulse Ox 36.8 C 81 16 177/88 H 100 03/21/18 08:00 03/21/18 12:00 03/21/18 12:00 03/21/18 12:00 03/21/18 12:00 Laboratory Results 03/19/18 04:39 03/20/18 04:40 03/20/18 03/21/18 03/22/18 05:59 05:59 05:59 Intake Total 1130 1200 240 Output Total 800 800 Balance 330 400 240 PT 16.3 SEC (12.0-15.0) H 03/14/18 04:35 INR 1.29 (0.83-1.16) H 03/14/18 04:35 chart reviewed US reviewed CT reviewed - Physical Exam Constitutional: cachectic (depressed affect) Cardiovascular: regular rate and rhythym, no murmur, rub, or gallop Respiratory: no respiratory distress, no rales or rhonchi, clear to auscultation Gastrointestinal: soft, non-tender abdomen, No no palpable masses, No guarding, No rebound, No distension ICD10 Worksheet Patient Problems: Problems Problem Status Onset Mucositis Acute
--- NOTE | 2018-03-21 14:57 | ASMTCMCOM ---
CM Note CM Note Notes: Met with patient regarding discharge plan of care. Patient currently lives at home independently but states she has a lot of support from friends/family (brother and [id number] are located in [place]). We discussed the possibility of going to SNF upon discharge (recommended by therapy), patient refuses at this time. She states her recently at a SNF ([facility]), has no interest in going to rehab at this time. Patient prefers home care and has used [facility] in the past. Spoke with Lucy at [facility] re: referral, able to accept. Patient also states she just bought a new house in [place] but plans on returning to her current residence upon discharge. CM will continue to follow patient's case to ensure she is safe to return home with [facility]. PASRR completed should patient change her mind and need SNF. Current D/C Plan: Home with [facility] Date Signed: 03/21/2018 02:56 PM Electronically Signed By:Bethanie Gonzales RN
--- NOTE | 2018-03-21 16:22 | SOAPPROG ---
ALESSANDRO Progress Note Assessment/Plan: Assessment: 1. 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 Pancreaticobiliary findings of bile duct dilation and possible pancreatic cyst - likely incidental to current presentation, EUS vs MRCP to eval further once convalescent, defer this for now PLAN: 1. continue IV solumedrol 2. continue po mesalamine 3. continue rowasa enema 4. consider change to po prednisone tomorrow, or saturday? - will follow, call with questions, Dr. Day to assume GI rounds at 5p on 03/21/18 Subjective: CC: colitis s: continued slow improvement no fever less BM frequency tolerating po no sob improving strength Objective: Vital Signs Temp Pulse Resp BP Pulse Ox 36.8 C 87 15 171/73 H 96 03/21/18 15:41 03/21/18 15:41 03/21/18 15:41 03/21/18 15:41 03/21/18 15:41 Laboratory Results 03/19/18 04:39 03/20/18 04:40 03/20/18 03/21/18 03/22/18 05:59 05:59 05:59 Intake Total 1130 1200 240 Output Total 800 800 Balance 330 400 240 PT 16.3 SEC (12.0-15.0) H 03/14/18 04:35 INR 1.29 (0.83-1.16) H 03/14/18 04:35 Physical Exam - Physical Exam EENT: PERRL/EOMI Neck: non-tender Respiratory: lungs clear Cardiac/Chest: regular rate, rhythm Abdomen: normal bowel sounds, soft Skin: normal color Extremities: normal range of motion Neuro/Psych: no motor/sensory deficits ICD10 Worksheet Patient Problems: Problems Problem Status Onset Mucositis Acute
[2018-03-21] MEDS: MESALAMINE 4 GM/60 ML ENEMA BOTTLE PR SCH (20:06)
[2018-03-21] MEDS: hydrALAZINE 25 MG TAB PO PRN (20:10)
[2018-03-21] MEDS: traZODone 50 MG TAB PO SCH (21:35)
[2018-03-22] MEDS: methylPREDNISolone SOD SUCC 40 MG/ML VIAL IVP SCH ×3 (05:44→20:57)
[2018-03-22] MEDS: LORazepam 0.5 MG TAB PO PRN ×3 (06:18→20:57)
[2018-03-22 06:23] LABS: PLATELET COUNT 232 10^3/uL (150-400)
[2018-03-22] MEDS: LOSARTAN POTASSIUM 25 MG TAB PO SCH ×2 (07:50→20:05)
[2018-03-22] MEDS: PANTOPRAZOLE SODIUM 40 MG TAB PO SCH (07:51)
[2018-03-22] MEDS: MESALAMINE 800 MG TAB.DR PO SCH ×3 (07:51→20:57)
--- NOTE | 2018-03-22 10:08 | HOSPPROG ---
Hospitalist Progress Note Assessment/Plan: # colitis - likely d/t IBD - cont steroids per GI - currently on IV - cont Rowasa enema and asacol # oral ulcerations - likely same process as above # gastritis - PPI # htn - checked arm reading today, reading systolic 40mmHg lower than leg - cont norvasc, cozaar # biliary ductal dilation - needs ERCP/EUS or MRCP at some point # pancreatic cyst - follow up via imaging vs ERCP # L adnexal cysts # L upper pole renal nodule - f/u CT 6 months # hx breast cancer s/p mastectomy # anemia - stable Subjective: feels slightly better again today; decreased number of BMs Objective: Vital Signs Temp Pulse Resp BP Pulse Ox 36.3 C 81 20 155/73 H 94 03/22/18 07:53 03/22/18 07:53 03/22/18 07:53 03/22/18 09:20 03/22/18 07:53 Laboratory Results 03/22/18 05:45 03/22/18 05:45 03/21/18 03/22/18 03/23/18 05:59 05:59 05:59 Intake Total 1200 915 Output Total 800 Balance 400 915 PT 16.3 SEC (12.0-15.0) H 03/14/18 04:35 INR 1.29 (0.83-1.16) H 03/14/18 04:35 - Physical Exam Constitutional: no apparent distress, appears nourished Cardiovascular: regular rate and rhythym, no murmur, rub, or gallop, systolic murmur Respiratory: no respiratory distress, no rales or rhonchi, clear to auscultation Gastrointestinal: soft, non-tender abdomen, no palpable masses, No guarding, No rebound, No distension ICD10 Worksheet Patient Problems: Problems Problem Status Onset Mucositis Acute
--- NOTE | 2018-03-22 10:17 | SOAPPROG ---
SOAP Progress Note Assessment/Plan: Assessment: 1. UC on Solumdreol, slowly improving. will continue on IV Solumedrol today and switch to PO prednisone tomorrow, 40 mg po daily. continue on Rowasa enemas 2. Diet as tolerated 3. Incidental findings of biliary tract and pancreas on CT scan. Dilated CBD in setting of prior cholecystectomy. Asymptomatic, normal EGD of the duodenum. Would suggest checking LFT's. Plan: 1. IV solumedrol today and Rowasa 2. Switch to PO prednisone tomorrow 3. Check LFT's 03/22/18 10:19 Subjective: CC: Colitis Patient is slowly improving with less diarrhea nd less blood per rectum. Denies any abdominal pain, tolerating PO Objective: Vital Signs Temp Pulse Resp BP Pulse Ox 36.3 C 81 20 155/73 H 94 03/22/18 07:53 03/22/18 07:53 03/22/18 07:53 03/22/18 09:20 03/22/18 07:53 Laboratory Results 03/22/18 05:45 03/22/18 05:45 03/21/18 03/22/18 03/23/18 05:59 05:59 05:59 Intake Total 1200 915 Output Total 800 Balance 400 915 PT 16.3 SEC (12.0-15.0) H 03/14/18 04:35 INR 1.29 (0.83-1.16) H 03/14/18 04:35 Generic Name Dose Route Start Last Admin Trade Name Freq PRN Reason Stop Dose Admin Acetaminophen 650 mg 03/11/18 17:52 03/14/18 16:17 Tylenol PO 09/07/18 17:51 650 mg Q4HRS PRN Administration Pain, Mild/Fever, Can Take PO Alteplase, Recombinant 2 mg 03/15/18 14:40 03/18/18 22:24 Cathflo Activase IVP 09/11/18 14:39 2 mg PRN PRN Administration Per PICC line policy Amlodipine Besylate 10 mg 03/20/18 09:00 03/22/18 07:51 Norvasc PO 09/16/18 08:59 10 mg DAILY AGUSTÍN Administration Calcium Carbonate 500 mg 03/12/18 17:29 Tums PO 09/08/18 17:28 TID PRN Indigestion Hydralazine HCl 25 mg 03/18/18 17:55 03/21/18 20:10 Apresoline PO 09/14/18 21:59 25 mg Q8 PRN Administration hypertension Lidocaine 5 - 10 ml 03/12/18 14:47 03/14/18 08:47 Lidocaine 2% Viscous PO 09/08/18 14:46 5 ml Q4 PRN Administration Mucositis, Mouth Pain Lidocaine/Diphenhydramine/Alumin/Mg 5 ml 03/11/18 18:05 03/14/18 08:47 Maalox/Diphenhydramine/Lido PO 09/07/18 18:04 5 ml PRN PRN Administration Mucositis, Mouth Pain Loperamide HCl 2 mg 03/14/18 06:49 03/18/18 17:18 Imodium PO 09/10/18 06:48 2 mg TID PRN Administration Diarrhea/Loose Stools Lorazepam 0.5 mg 03/13/18 09:22 03/22/18 06:18 Ativan PO 09/09/18 09:21 0.5 mg Q6H PRN Administration ANXIETY Losartan Potassium 25 mg 03/21/18 21:00 03/21/18 20:06 Cozaar PO 09/17/18 20:59 25 mg HS AGUSTÍN Administration Losartan Potassium 50 mg 03/21/18 09:00 03/22/18 07:50 Cozaar PO 09/17/18 08:59 50 mg DAILY AGUSTÍN Administration Melatonin 3 mg 03/12/18 01:46 03/12/18 01:56 Melatonin PO 09/08/18 01:45 3 mg HS PRN Administration Sleep/Insomnia Mesalamine 4 gm 03/17/18 21:00 03/21/18 20:06 Rowasa 4gm Enema SC 09/13/18 20:59 4 gm HS AGUSTÍN Administration Mesalamine 1,600 mg 03/17/18 09:00 03/22/18 07:51 Asacol Hd PO 09/13/18 08:59 1,600 mg TID AGUSTÍN Administration Methylprednisolone Sodium Succinate 40 mg 03/20/18 14:00 03/22/18 05:44 Solu-Medrol IVP 09/16/18 13:59 40 mg Q8HRS AGUSTÍN Administration Ondansetron HCl 4 - 8 mg 03/12/18 17:31 03/17/18 07:20 Zofran IVP 09/07/18 17:51 4 mg Q4HRS PRN Administration Nausea/Vomiting, Can't Take PO Ondansetron HCl 4 - 8 mg 03/12/18 17:31 03/18/18 17:18 Zofran Odt PO 09/07/18 17:51 4 mg Q4HRS PRN Administration Nausea/Vomiting, Use 1st Pantoprazole Sodium 40 mg 03/14/18 09:00 03/22/18 07:51 Protonix PO 09/10/18 08:59 40 mg DAILY AGUSTÍN Administration Promethazine HCl 6.25 - 12.5 mg 03/11/18 17:52 03/12/18 09:49 Phenergan IVP 09/07/18 17:51 6.25 mg Q6HRS PRN Administration Nausea/Vomiting, Use 2nd Promethazine HCl 6.25 - 25 mg 03/12/18 17:30 Phenergan PO 09/08/18 17:29 Q6HRS PRN Nausea/Vomiting, Use 2nd Trazodone HCl 25 - 50 mg 03/15/18 20:26 03/21/18 21:35 Trazodone PO 09/08/18 20:59 50 mg HS AGUSTÍN Administration Discontinued Medications Generic Name Dose Route Start Last Admin Trade Name Freq PRN Reason Stop Dose Admin Amlodipine Besylate 5 mg 03/19/18 09:00 03/19/18 08:31 Norvasc PO 09/15/18 08:59 5 mg DAILY AGUSTÍN Administration Fentanyl Confirm 03/17/18 07:46 Sublimaze Administered 03/17/18 07:47 Dose 100 mcg .ROUTE .STK-MED ONE Hydromorphone HCl 0.2 - 0.4 mg 03/11/18 17:52 Dilaudid IVP 03/21/18 17:51 Q4HRS PRN Pain, Severe Unable to Take PO Hydromorphone/Sodium Chloride 0.2 - 0.4 mg 03/12/18 17:31 Hydromorphone IVP 03/21/18 17:51 Q2 PRN Pain, Severe Unable to Take PO Fluconazole/Sodium Chloride 100 mls @ 100 mls/hr 03/11/18 18:00 03/12/18 09: 41 Diflucan 2mg/Ml (Premix) IV 04/10/18 17:59 100 mls DAILY AGUSTÍN Administration Sodium Chloride 1,000 mls @ 125 mls/hr 03/11/18 18:00 03/12/18 04:09 Ns IV 09/07/18 17:59 1,000 mls CONT AGUSTÍN Administration Famotidine/Sodium Chloride 50 mls @ 200 mls/hr 03/12/18 21:00 03/13/18 08:51 Pepcid 20 Mg (Premix) IV 09/08/18 20:59 50 mls Q12HRS AGUSTÍN Administration Sodium Chloride 1,000 mls @ 100 mls/hr 03/13/18 17:00 03/15/18 05:23 1/2 Ns IV 09/09/18 16:59 1,000 mls CONT AGUSTÍN Administration Potassium Chloride 50 mls @ 50 mls/hr 03/15/18 23:36 03/16/18 02:46 Potassium Cl 10 Meq (Premix) IV 03/16/18 02:35 50 mls Q1H AGUSTÍN Administration Potassium Chloride 100 mls @ 50 mls/hr 03/16/18 23:00 03/16/18 23:09 Potassium Cl 20 Meq (Premix) IV 03/17/18 00:59 100 mls ONCE ONE Administration Potassium Chloride 10 meq/ 50 mls @ 50 mls/hr 03/17/18 01:00 03/17/18 01:15 Dextrose IV 03/17/18 01:59 50 mls ONCE ONE Administration Iopamidol Confirm 03/14/18 12:41 Isovue-300 Administered 03/14/18 12:42 Dose 100 ml .ROUTE .STK-MED ONE Iopamidol Confirm 03/15/18 14:56 Isovue-370 Administered 03/15/18 14:57 Dose 100 ml IV .STK-MED ONE Lidocaine HCl Confirm 03/12/18 12:40 Xylocaine-Mpf 2% Vial Administered 03/12/18 12:41 Dose 5 ml .ROUTE .STK-MED ONE Losartan Potassium 25 mg 03/12/18 09:00 03/12/18 09:39 Cozaar PO 09/08/18 08:59 25 mg DAILY AGUSTÍN Administration Losartan Potassium 25 mg 03/12/18 21:00 03/20/18 21:15 Cozaar PO 09/08/18 20:59 25 mg BID AGUSTÍN Administration Methylprednisolone Sodium Succinate 40 mg 03/17/18 14:00 03/20/18 04:36 Solu-Medrol IVP 09/13/18 13:59 40 mg Q8HRS AGUSTÍN Administration Naloxone HCl 0.1 mg 03/12/18 13:04 Narcan IVP 03/12/18 14:04 Q2M PRN PACU Resp Rate <10/min Naloxone HCl 0.1 mg 03/17/18 10:56 Narcan IVP 03/17/18 11:57 Q2M PRN PACU Resp Rate <10/min Nystatin 500,000 unit 03/11/18 21:00 03/12/18 17:39 Mycostatin Oral Liquid PO 04/10/18 20:59 Not Given QID AGUSTÍN Protocol Nystatin 500,000 unit 03/13/18 17:00 03/14/18 05:42 Mycostatin Oral Liquid PO 04/12/18 16:59 500,000 unit QID AGUSTÍN Administration Protocol Ondansetron HCl 4 mg 03/11/18 17:52 03/12/18 14:00 Zofran IVP 09/07/18 17:51 4 mg Q4HRS PRN Administration Nausea/Vomiting, Can't Take PO Ondansetron HCl 4 mg 03/11/18 17:52 Zofran Odt PO 09/07/18 17:51 Q4HRS PRN Nausea/Vomiting, Use 1st Ondansetron HCl Confirm 03/12/18 13:43 Zofran Administered 03/12/18 13:44 Dose 4 mg .ROUTE .STK-MED ONE Pantoprazole Sodium 40 mg 03/12/18 17:30 03/13/18 08:51 Protonix IVP 09/08/18 17:29 40 mg DAILY AGUSTÍN Administration Polyethylene Glycol/Electrolytes 4,000 ml 03/15/18 07:58 03/15/18 13:48 Gavilyte - G PO 03/15/18 07:59 4,000 ml ONCE ONE Administration Potassium Chloride 40 meq 03/15/18 15:15 03/15/18 15:20 Klor-Con PO 03/15/18 15:16 40 meq ONCE ONE Administration Potassium Chloride 30 meq 03/17/18 09:31 03/17/18 10:57 Klor-Con PO 03/17/18 09:32 30 meq ONCE ONE Administration Protocol Potassium Chloride 10 meq 03/18/18 00:05 03/18/18 03:09 Klor-Con PO 03/18/18 00:06 10 meq ONCE ONE Administration Protocol Potassium Chloride 10 - 40 meq 03/18/18 10:35 03/18/18 11:13 Klor-Con PO 03/18/18 10:36 20 meq ONCE ONE Administration Protocol Potassium Chloride 20 meq 03/18/18 19:58 03/18/18 22:07 Klor-Con PO 03/18/18 19:59 20 meq ONCE ONE Administration Protocol Prednisone 40 mg 03/20/18 14:00 Prednisone PO 09/16/18 13:59 DAILY AGUSTÍN Propofol Confirm 03/12/18 12:40 Diprivan 10 Mg/Ml (Premix) Administered 03/12/18 12:41 Dose 500 mg IV .STK-MED ONE Propofol Confirm 03/17/18 07:42 Diprivan Administered 03/17/18 07:43 Dose 200 mg .ROUTE .STK-MED ONE Trazodone HCl 50 mg 03/12/18 21:00 03/14/18 21:01 Trazodone PO 09/08/18 20:59 50 mg HS AGUSTÍN Administration Valacyclovir HCl 1,000 mg 03/13/18 13:30 03/14/18 08:47 Valtrex PO 04/12/18 13:29 1,000 mg Q12HRS AGUSTÍN Administration Physical Exam - Physical Exam General Appearance: alert, no apparent distress Respiratory: lungs clear, normal breath sounds Cardiac/Chest: regular rate, rhythm Abdomen: normal bowel sounds, non-tender, soft Skin: normal color, warm/dry Lymphatic: no adenopathy Neuro/Psych: alert, normal mood/affect, oriented x 3 ICD10 Worksheet Patient Problems: Problems Problem Status Onset Mucositis Acute
[2018-03-22] MEDS: traZODone 50 MG TAB PO SCH (20:05)
[2018-03-22] MEDS: MESALAMINE 4 GM/60 ML ENEMA BOTTLE PR SCH (20:06)
[2018-03-23] MEDS: methylPREDNISolone SOD SUCC 40 MG/ML VIAL IVP SCH (05:10)
--- NOTE | 2018-03-23 09:12 | SOAPPROG ---
ALESSANDRO Progress Note Assessment/Plan: Assessment: 1. UC on Solumdrol, will discontinue solumedrol and start Prednisone PO 2. Continue diet as tolerated Plan: 1. Switch to PO prednisone tomorrow. Prednisone taper 40 mg daily x 7 days then taper by 5 mg every 7 days until off 2. Would initiate on Oral Mesalamine prior to discharge. Would only treat with Rowasa enema daily for total of two weeks 3. When taking PO can be discharged to home with GI follow up 03/23/18 09:08 Subjective: CC: Diarrhea, ulcerative colitis Objective: Vital Signs Temp Pulse Resp BP Pulse Ox 36.6 C 67 15 155/73 H 91 L 03/23/18 08:32 03/23/18 08:32 03/23/18 08:32 03/23/18 08:32 03/23/18 08:32 Laboratory Results 03/22/18 05:45 03/23/18 05:10 03/22/18 03/23/18 03/24/18 05:59 05:59 05:59 Intake Total 915 700 Balance 915 700 PT 16.3 SEC (12.0-15.0) H 03/14/18 04:35 INR 1.29 (0.83-1.16) H 03/14/18 04:35 Generic Name Dose Route Start Last Admin Trade Name Kyq PRN Reason Stop Dose Admin Acetaminophen 650 mg 03/11/18 17:52 03/14/18 16:17 Tylenol PO 09/07/18 17:51 650 mg Q4HRS PRN Administration Pain, Mild/Fever, Can Take PO Alteplase, Recombinant 2 mg 03/15/18 14:40 03/18/18 22:24 Cathflo Activase IVP 09/11/18 14:39 2 mg PRN PRN Administration Per PICC line policy Amlodipine Besylate 10 mg 03/20/18 09:00 03/22/18 07:51 Norvasc PO 09/16/18 08:59 10 mg DAILY AGUSTÍN Administration Calcium Carbonate 500 mg 03/12/18 17:29 Tums PO 09/08/18 17:28 TID PRN Indigestion Hydralazine HCl 25 mg 03/18/18 17:55 03/21/18 20:10 Apresoline PO 09/14/18 21:59 25 mg Q8 PRN Administration hypertension Lidocaine 5 - 10 ml 03/12/18 14:47 03/14/18 08:47 Lidocaine 2% Viscous PO 09/08/18 14:46 5 ml Q4 PRN Administration Mucositis, Mouth Pain Lidocaine/Diphenhydramine/Alumin/Mg 5 ml 03/11/18 18:05 03/14/18 08:47 Maalox/Diphenhydramine/Lido PO 09/07/18 18:04 5 ml PRN PRN Administration Mucositis, Mouth Pain Loperamide HCl 2 mg 03/14/18 06:49 03/18/18 17:18 Imodium PO 09/10/18 06:48 2 mg TID PRN Administration Diarrhea/Loose Stools Lorazepam 0.5 mg 03/13/18 09:22 03/22/18 20:57 Ativan PO 09/09/18 09:21 0.5 mg Q6H PRN Administration ANXIETY Losartan Potassium 25 mg 03/21/18 21:00 03/22/18 20:05 Cozaar PO 09/17/18 20:59 25 mg HS AGUSTÍN Administration Losartan Potassium 50 mg 03/21/18 09:00 03/22/18 07:50 Cozaar PO 09/17/18 08:59 50 mg DAILY AGUSTÍN Administration Melatonin 3 mg 03/12/18 01:46 03/12/18 01:56 Melatonin PO 09/08/18 01:45 3 mg HS PRN Administration Sleep/Insomnia Mesalamine 4 gm 03/17/18 21:00 03/22/18 20:06 Rowasa 4gm Enema DE 09/13/18 20:59 4 gm HS AGUSTÍN Administration Mesalamine 1,600 mg 03/17/18 09:00 03/22/18 20:57 Asacol Hd PO 09/13/18 08:59 1,600 mg TID AGUSTÍN Administration Methylprednisolone Sodium Succinate 40 mg 03/20/18 14:00 03/23/18 05:10 Solu-Medrol IVP 09/16/18 13:59 40 mg Q8HRS AGUSTÍN Administration Ondansetron HCl 4 - 8 mg 03/12/18 17:31 03/17/18 07:20 Zofran IVP 09/07/18 17:51 4 mg Q4HRS PRN Administration Nausea/Vomiting, Can't Take PO Ondansetron HCl 4 - 8 mg 03/12/18 17:31 03/18/18 17:18 Zofran Odt PO 09/07/18 17:51 4 mg Q4HRS PRN Administration Nausea/Vomiting, Use 1st Pantoprazole Sodium 40 mg 03/14/18 09:00 03/22/18 07:51 Protonix PO 09/10/18 08:59 40 mg DAILY AGUSTÍN Administration Promethazine HCl 6.25 - 12.5 mg 03/11/18 17:52 03/12/18 09:49 Phenergan IVP 09/07/18 17:51 6.25 mg Q6HRS PRN Administration Nausea/Vomiting, Use 2nd Promethazine HCl 6.25 - 25 mg 03/12/18 17:30 Phenergan PO 09/08/18 17:29 Q6HRS PRN Nausea/Vomiting, Use 2nd Trazodone HCl 25 - 50 mg 03/15/18 20:26 03/22/18 20:05 Trazodone PO 09/08/18 20:59 50 mg HS AGUSTÍN Administration Discontinued Medications Generic Name Dose Route Start Last Admin Trade Name Freq PRN Reason Stop Dose Admin Amlodipine Besylate 5 mg 03/19/18 09:00 03/19/18 08:31 Norvasc PO 09/15/18 08:59 5 mg DAILY AGUSTÍN Administration Fentanyl Confirm 03/17/18 07:46 Sublimaze Administered 03/17/18 07:47 Dose 100 mcg .ROUTE .STK-MED ONE Hydromorphone HCl 0.2 - 0.4 mg 03/11/18 17:52 Dilaudid IVP 03/21/18 17:51 Q4HRS PRN Pain, Severe Unable to Take PO Hydromorphone/Sodium Chloride 0.2 - 0.4 mg 03/12/18 17:31 Hydromorphone IVP 03/21/18 17:51 Q2 PRN Pain, Severe Unable to Take PO Fluconazole/Sodium Chloride 100 mls @ 100 mls/hr 03/11/18 18:00 03/12/18 09: 41 Diflucan 2mg/Ml (Premix) IV 04/10/18 17:59 100 mls DAILY AGUSTÍN Administration Sodium Chloride 1,000 mls @ 125 mls/hr 03/11/18 18:00 03/12/18 04:09 Ns IV 09/07/18 17:59 1,000 mls CONT AGUSTÍN Administration Famotidine/Sodium Chloride 50 mls @ 200 mls/hr 03/12/18 21:00 03/13/18 08:51 Pepcid 20 Mg (Premix) IV 09/08/18 20:59 50 mls Q12HRS AGUSTÍN Administration Sodium Chloride 1,000 mls @ 100 mls/hr 03/13/18 17:00 03/15/18 05:23 1/2 Ns IV 09/09/18 16:59 1,000 mls CONT AGUSTÍN Administration Potassium Chloride 50 mls @ 50 mls/hr 03/15/18 23:36 03/16/18 02:46 Potassium Cl 10 Meq (Premix) IV 03/16/18 02:35 50 mls Q1H AGUSTÍN Administration Potassium Chloride 100 mls @ 50 mls/hr 03/16/18 23:00 03/16/18 23:09 Potassium Cl 20 Meq (Premix) IV 03/17/18 00:59 100 mls ONCE ONE Administration Potassium Chloride 10 meq/ 50 mls @ 50 mls/hr 03/17/18 01:00 03/17/18 01:15 Dextrose IV 03/17/18 01:59 50 mls ONCE ONE Administration Iopamidol Confirm 03/14/18 12:41 Isovue-300 Administered 03/14/18 12:42 Dose 100 ml .ROUTE .STK-MED ONE Iopamidol Confirm 03/15/18 14:56 Isovue-370 Administered 03/15/18 14:57 Dose 100 ml IV .STK-MED ONE Lidocaine HCl Confirm 03/12/18 12:40 Xylocaine-Mpf 2% Vial Administered 03/12/18 12:41 Dose 5 ml .ROUTE .STK-MED ONE Losartan Potassium 25 mg 03/12/18 09:00 03/12/18 09:39 Cozaar PO 09/08/18 08:59 25 mg DAILY AGUSTÍN Administration Losartan Potassium 25 mg 03/12/18 21:00 03/20/18 21:15 Cozaar PO 09/08/18 20:59 25 mg BID AGUSTÍN Administration Methylprednisolone Sodium Succinate 40 mg 03/17/18 14:00 03/20/18 04:36 Solu-Medrol IVP 09/13/18 13:59 40 mg Q8HRS AGUSTÍN Administration Naloxone HCl 0.1 mg 03/12/18 13:04 Narcan IVP 03/12/18 14:04 Q2M PRN PACU Resp Rate <10/min Naloxone HCl 0.1 mg 03/17/18 10:56 Narcan IVP 03/17/18 11:57 Q2M PRN PACU Resp Rate <10/min Nystatin 500,000 unit 03/11/18 21:00 03/12/18 17:39 Mycostatin Oral Liquid PO 04/10/18 20:59 Not Given QID AGUSTÍN Protocol Nystatin 500,000 unit 03/13/18 17:00 03/14/18 05:42 Mycostatin Oral Liquid PO 04/12/18 16:59 500,000 unit QID AGUSTÍN Administration Protocol Ondansetron HCl 4 mg 03/11/18 17:52 03/12/18 14:00 Zofran IVP 09/07/18 17:51 4 mg Q4HRS PRN Administration Nausea/Vomiting, Can't Take PO Ondansetron HCl 4 mg 03/11/18 17:52 Zofran Odt PO 09/07/18 17:51 Q4HRS PRN Nausea/Vomiting, Use 1st Ondansetron HCl Confirm 03/12/18 13:43 Zofran Administered 03/12/18 13:44 Dose 4 mg .ROUTE .STK-MED ONE Pantoprazole Sodium 40 mg 03/12/18 17:30 03/13/18 08:51 Protonix IVP 09/08/18 17:29 40 mg DAILY AGUSTÍN Administration Polyethylene Glycol/Electrolytes 4,000 ml 03/15/18 07:58 03/15/18 13:48 Gavilyte - G PO 03/15/18 07:59 4,000 ml ONCE ONE Administration Potassium Chloride 40 meq 03/15/18 15:15 03/15/18 15:20 Klor-Con PO 03/15/18 15:16 40 meq ONCE ONE Administration Potassium Chloride 30 meq 03/17/18 09:31 03/17/18 10:57 Klor-Con PO 03/17/18 09:32 30 meq ONCE ONE Administration Protocol Potassium Chloride 10 meq 03/18/18 00:05 03/18/18 03:09 Klor-Con PO 03/18/18 00:06 10 meq ONCE ONE Administration Protocol Potassium Chloride 10 - 40 meq 03/18/18 10:35 03/18/18 11:13 Klor-Con PO 03/18/18 10:36 20 meq ONCE ONE Administration Protocol Potassium Chloride 20 meq 03/18/18 19:58 03/18/18 22:07 Klor-Con PO 03/18/18 19:59 20 meq ONCE ONE Administration Protocol Prednisone 40 mg 03/20/18 14:00 Prednisone PO 09/16/18 13:59 DAILY AGUSTÍN Propofol Confirm 03/12/18 12:40 Diprivan 10 Mg/Ml (Premix) Administered 03/12/18 12:41 Dose 500 mg IV .STK-MED ONE Propofol Confirm 03/17/18 07:42 Diprivan Administered 03/17/18 07:43 Dose 200 mg .ROUTE .STK-MED ONE Trazodone HCl 50 mg 03/12/18 21:00 03/14/18 21:01 Trazodone PO 09/08/18 20:59 50 mg HS AGUSTÍN Administration Valacyclovir HCl 1,000 mg 03/13/18 13:30 03/14/18 08:47 Valtrex PO 04/12/18 13:29 1,000 mg Q12HRS AGUSTÍN Administration Physical Exam - Physical Exam General Appearance: alert, no apparent distress Respiratory: lungs clear, normal breath sounds Cardiac/Chest: regular rate, rhythm Abdomen: normal bowel sounds, non-tender, soft Skin: normal color, warm/dry Neuro/Psych: alert, normal mood/affect, oriented x 3 ICD10 Worksheet Patient Problems: Problems Problem Status Onset Mucositis Acute
--- NOTE | 2018-03-23 09:26 | HOSPPROG ---
Hospitalist Progress Note Assessment/Plan: # colitis - likely d/t IBD - cont steroids per GI - change to PO today - cont Rowasa enema and asacol # oral ulcerations - likely same process as above # gastritis - PPI # htn - checked arm reading today, reading systolic 40mmHg lower than leg - cont norvasc, cozaar # biliary ductal dilation - check MRCP today # pancreatic cyst - MRI abd today # L adnexal cysts # L upper pole renal nodule - f/u CT 6 months # hx breast cancer s/p mastectomy # anemia - stable # dispo - likely tomorrow, SNF vs home with HC Subjective: diarrhea "mostly gone" Objective: Vital Signs Temp Pulse Resp BP Pulse Ox 36.6 C 67 15 155/73 H 91 L 03/23/18 08:32 03/23/18 08:32 03/23/18 08:32 03/23/18 08:32 03/23/18 08:32 Laboratory Results 03/22/18 05:45 03/23/18 05:10 03/22/18 03/23/18 03/24/18 05:59 05:59 05:59 Intake Total 915 700 Balance 915 700 PT 16.3 SEC (12.0-15.0) H 03/14/18 04:35 INR 1.29 (0.83-1.16) H 03/14/18 04:[address] Day - Physical Exam Constitutional: no apparent distress, appears nourished Cardiovascular: regular rate and rhythym, no murmur, rub, or gallop, systolic murmur Respiratory: no respiratory distress, no rales or rhonchi, clear to auscultation Gastrointestinal: soft, non-tender abdomen, no palpable masses, No guarding, No rebound, No distension ICD10 Worksheet Patient Problems: Problems Problem Status Onset Mucositis Acute
[2018-03-23] MEDS: PANTOPRAZOLE SODIUM 40 MG TAB PO SCH (09:46)
[2018-03-23] MEDS: LOSARTAN POTASSIUM 25 MG TAB PO SCH ×2 (09:46→22:20)
[2018-03-23] MEDS: MESALAMINE 800 MG TAB.DR PO SCH ×3 (09:47→22:20)
[2018-03-23] MEDS ORDERED: GADOBUTROL 10 ML VIAL IVP ONE (11:53)
[2018-03-23] MEDS: LORazepam 0.5 MG TAB PO PRN ×2 (11:54→22:20)
--- NOTE | 2018-03-23 16:04 | ASMTCMCOM ---
CM Note CM Note Notes: Patient reports that she would like to go to [facility] for rehab. Referral sent. Date Signed: 03/23/2018 04:03 PM Electronically Signed By:Deya Wheeler LCSW
[2018-03-23] MEDS: MELATONIN 3 MG TAB PO PRN (22:20)
[2018-03-23] MEDS: traZODone 50 MG TAB PO SCH (22:20)
[2018-03-24] MEDS ORDERED: POTASSIUM CL 20 MEQ TAB PO ONE (05:37)
[2018-03-24] MEDS: LORazepam 0.5 MG TAB PO PRN ×2 (06:02→19:59)
[2018-03-24] MEDS ORDERED: PROTOCOL POTASSIUM 1 DOSE MISC PRN (06:24)
[2018-03-24] MEDS: ONDANSETRON 4 MG/2 ML VIAL IVP PRN (08:11)
[2018-03-24] MEDS: predniSONE 20 MG TAB PO SCH (09:01)
[2018-03-24] MEDS: MESALAMINE 800 MG TAB.DR PO SCH ×3 (09:01→20:30)
[2018-03-24] MEDS: LOSARTAN POTASSIUM 25 MG TAB PO SCH ×2 (09:03→20:33)
[2018-03-24] MEDS: PANTOPRAZOLE SODIUM 40 MG TAB PO SCH (09:03)
--- NOTE | 2018-03-24 11:30 | HOSPPROG ---
Hospitalist Progress Note Assessment/Plan: # colitis - likely d/t IBD; seems slightly worse today; changed to prednisone PO yesterday - cont steroids per GI - back to IV? - cont Rowasa enema and asacol # oral ulcerations - likely same process as above # hypoK - likely combination of poor PO intake and diarrhea - replete # LE edema - symmetric doubt DVT; more likely low oncotic pressure with low albumin - no diuretics today given gio K - elevate # gastritis - PPI # htn - checked arm reading today, reading systolic 40mmHg lower than leg - cont norvasc, cozaar # biliary ductal dilation - mild on MRCP; consider outpatient f/u # pancreatic cyst/atrophy - consider outpatient f/u in 1 year # L adnexal cysts # L upper pole renal nodule - f/u MRI 6-12 months # hx breast cancer s/p mastectomy # anemia - stable # dispo - SNF when doing better Subjective: worse nausea today; had a few bloody stools overnight Objective: Vital Signs Temp Pulse Resp BP Pulse Ox 36.9 C 85 14 138/70 H 95 03/24/18 07:18 03/24/18 07:18 03/24/18 07:18 03/24/18 07:18 03/24/18 07:18 Laboratory Results 03/22/18 05:45 03/24/18 04:35 03/23/18 03/24/18 03/25/18 05:59 05:59 05:59 Intake Total 700 600 Balance 700 600 PT 16.3 SEC (12.0-15.0) H 03/14/18 04:35 INR 1.29 (0.83-1.16) H 03/14/18 04:35 chart reviewed MRI abd reviewed - Physical Exam Constitutional: uncomfortable Cardiovascular: regular rate and rhythym, systolic murmur Respiratory: no respiratory distress, no rales or rhonchi, clear to auscultation Gastrointestinal: soft, non-tender abdomen, no palpable masses, No tenderness Musculoskeletal: other (2+ bilat LE edema) ICD10 Worksheet Patient Problems: Problems Problem Status Onset Mucositis Acute
--- NOTE | 2018-03-24 12:01 | SOAPPROG ---
SOAP Progress Note Assessment/Plan: Assessment: UC on PO prednisone. Had some runny BM's today. Feeling very fatigued. Plan: 1. Continue on PO prednisone 2. Continue Rowasa enemas and oral Mesalamine. 3. Anticipate patient to be discharged to rehab after hospital discharge 03/24/18 11:58 Subjective: CC: Diarrhea and UC [place] better yesterday with hardly any BM's. Had runny stool today. Feels very wiped out. Objective: Vital Signs Temp Pulse Resp BP Pulse Ox 36.8 C 81 14 127/70 H 94 03/24/18 11:26 03/24/18 11:26 03/24/18 11:26 03/24/18 11:26 03/24/18 11:26 Laboratory Results 03/22/18 05:45 03/24/18 04:35 03/23/18 03/24/18 03/25/18 05:59 05:59 05:59 Intake Total 700 600 Balance 700 600 PT 16.3 SEC (12.0-15.0) H 03/14/18 04:35 INR 1.29 (0.83-1.16) H 03/14/18 04:35 Generic Name Dose Route Start Last Admin Trade Name Freq PRN Reason Stop Dose Admin Acetaminophen 650 mg 03/11/18 17:52 03/14/18 16:17 Tylenol PO 09/07/18 17:51 650 mg Q4HRS PRN Administration Pain, Mild/Fever, Can Take PO Alteplase, Recombinant 2 mg 03/15/18 14:40 03/18/18 22:24 Cathflo Activase IVP 09/11/18 14:39 2 mg PRN PRN Administration Per PICC line policy Amlodipine Besylate 10 mg 03/20/18 09:00 03/24/18 09:02 Norvasc PO 09/16/18 08:59 10 mg DAILY AGUSTÍN Administration Calcium Carbonate 500 mg 03/12/18 17:29 Tums PO 09/08/18 17:28 TID PRN Indigestion Hydralazine HCl 25 mg 03/18/18 17:55 03/21/18 20:10 Apresoline PO 09/14/18 21:59 25 mg Q8 PRN Administration hypertension Lidocaine 5 - 10 ml 03/12/18 14:47 03/14/18 08:47 Lidocaine 2% Viscous PO 09/08/18 14:46 5 ml Q4 PRN Administration Mucositis, Mouth Pain Lidocaine/Diphenhydramine/Alumin/Mg 5 ml 03/11/18 18:05 03/14/18 08:47 Maalox/Diphenhydramine/Lido PO 09/07/18 18:04 5 ml PRN PRN Administration Mucositis, Mouth Pain Loperamide HCl 2 mg 03/14/18 06:49 03/18/18 17:18 Imodium PO 09/10/18 06:48 2 mg TID PRN Administration Diarrhea/Loose Stools Lorazepam 0.5 mg 03/13/18 09:22 03/24/18 06:02 Ativan PO 09/09/18 09:21 0.5 mg Q6H PRN Administration ANXIETY Losartan Potassium 25 mg 03/21/18 21:00 03/23/18 22:20 Cozaar PO 09/17/18 20:59 25 mg HS AGUSTÍN Administration Losartan Potassium 50 mg 03/21/18 09:00 03/24/18 09:03 Cozaar PO 09/17/18 08:59 50 mg DAILY AGUSTÍN Administration Melatonin 3 mg 03/12/18 01:46 03/23/18 22:20 Melatonin PO 09/08/18 01:45 3 mg HS PRN Administration Sleep/Insomnia Mesalamine 4 gm 03/17/18 21:00 03/24/18 00:00 Rowasa 4gm Enema [place] 09/13/18 20:59 Not Given HS AGUSTÍN Mesalamine 1,600 mg 03/17/18 09:00 03/24/18 09:01 Asacol Hd PO 09/13/18 08:59 1,600 mg TID AGUSTÍN Administration Ondansetron HCl 4 - 8 mg 03/12/18 17:31 03/24/18 08:11 Zofran IVP 09/07/18 17:51 4 mg Q4HRS PRN Administration Nausea/Vomiting, Can't Take PO Ondansetron HCl 4 - 8 mg 03/12/18 17:31 03/18/18 17:18 Zofran Odt PO 09/07/18 17:51 4 mg Q4HRS PRN Administration Nausea/Vomiting, Use 1st Pantoprazole Sodium 40 mg 03/14/18 09:00 03/24/18 09:03 Protonix PO 09/10/18 08:59 40 mg DAILY AGUSTÍN Administration Potassium Chloride 1 dose 03/24/18 06:24 Protocol Potassium MISC 09/20/18 06:23 AD PRN Pt on Electrolyte Protocol Protocol Prednisone 40 mg 03/24/18 09:00 03/24/18 09:01 Prednisone PO 09/20/18 08:59 40 mg DAILY AGUSTÍN Administration Promethazine HCl 6.25 - 12.5 mg 03/11/18 17:52 03/12/18 09:49 Phenergan IVP 09/07/18 17:51 6.25 mg Q6HRS PRN Administration Nausea/Vomiting, Use 2nd Promethazine HCl 6.25 - 25 mg 03/12/18 17:30 Phenergan PO 09/08/18 17:29 Q6HRS PRN Nausea/Vomiting, Use 2nd Trazodone HCl 25 - 50 mg 03/15/18 20:26 03/23/18 22:20 Trazodone PO 09/08/18 20:59 50 mg HS AGUSTÍN Administration Discontinued Medications Generic Name Dose Route Start Last Admin Trade Name Freq PRN Reason Stop Dose Admin Amlodipine Besylate 5 mg 03/19/18 09:00 03/19/18 08:31 Norvasc PO 09/15/18 08:59 5 mg DAILY AGUSTÍN Administration Fentanyl Confirm 03/17/18 07:46 Sublimaze Administered 03/17/18 07:47 Dose 100 mcg .ROUTE .STK-MED ONE Gadobutrol Confirm 03/23/18 11:53 Gadavist 1 Mmol/Ml Administered 03/23/18 11:54 Dose 10 ml IVP .STK-MED ONE Hydromorphone HCl 0.2 - 0.4 mg 03/11/18 17:52 Dilaudid IVP 03/21/18 17:51 Q4HRS PRN Pain, Severe Unable to Take PO Hydromorphone/Sodium Chloride 0.2 - 0.4 mg 03/12/18 17:31 Hydromorphone IVP 03/21/18 17:51 Q2 PRN Pain, Severe Unable to Take PO Fluconazole/Sodium Chloride 100 mls @ 100 mls/hr 03/11/18 18:00 03/12/18 09: 41 Diflucan 2mg/Ml (Premix) IV 04/10/18 17:59 100 mls DAILY AGUSTÍN Administration Sodium Chloride 1,000 mls @ 125 mls/hr 03/11/18 18:00 03/12/18 04:09 Ns IV 09/07/18 17:59 1,000 mls CONT AGUSTÍN Administration Famotidine/Sodium Chloride 50 mls @ 200 mls/hr 03/12/18 21:00 03/13/18 08:51 Pepcid 20 Mg (Premix) IV 09/08/18 20:59 50 mls Q12HRS AGUSTÍN Administration Sodium Chloride 1,000 mls @ 100 mls/hr 03/13/18 17:00 03/15/18 05:23 1/2 Ns IV 09/09/18 16:59 1,000 mls CONT AGUSTÍN Administration Potassium Chloride 50 mls @ 50 mls/hr 03/15/18 23:36 03/16/18 02:46 Potassium Cl 10 Meq (Premix) IV 03/16/18 02:35 50 mls Q1H AGUSTÍN Administration Potassium Chloride 100 mls @ 50 mls/hr 03/16/18 23:00 03/16/18 23:09 Potassium Cl 20 Meq (Premix) IV 03/17/18 00:59 100 mls ONCE ONE Administration Potassium Chloride 10 meq/ 50 mls @ 50 mls/hr 03/17/18 01:00 03/17/18 01:15 Dextrose IV 03/17/18 01:59 50 mls ONCE ONE Administration Iopamidol Confirm 03/14/18 12:41 Isovue-300 Administered 03/14/18 12:42 Dose 100 ml .ROUTE .STK-MED ONE Iopamidol Confirm 03/15/18 14:56 Isovue-370 Administered 03/15/18 14:57 Dose 100 ml IV .STK-MED ONE Lidocaine HCl Confirm 03/12/18 12:40 Xylocaine-Mpf 2% Vial Administered 03/12/18 12:41 Dose 5 ml .ROUTE .STK-MED ONE Losartan Potassium 25 mg 03/12/18 09:00 03/12/18 09:39 Cozaar PO 09/08/18 08:59 25 mg DAILY AGUSTÍN Administration Losartan Potassium 25 mg 03/12/18 21:00 03/20/18 21:15 Cozaar PO 09/08/18 20:59 25 mg BID AGUSTÍN Administration Methylprednisolone Sodium Succinate 40 mg 03/17/18 14:00 03/20/18 04:36 Solu-Medrol IVP 09/13/18 13:59 40 mg Q8HRS AGUSTÍN Administration Methylprednisolone Sodium Succinate 40 mg 03/20/18 14:00 03/23/18 05:10 Solu-Medrol IVP 09/16/18 13:59 40 mg Q8HRS AGUSTÍN Administration Naloxone HCl 0.1 mg 03/12/18 13:04 Narcan IVP 03/12/18 14:04 Q2M PRN PACU Resp Rate <10/min Naloxone HCl 0.1 mg 03/17/18 10:56 Narcan IVP 03/17/18 11:57 Q2M PRN PACU Resp Rate <10/min Nystatin 500,000 unit 03/11/18 21:00 03/12/18 17:39 Mycostatin Oral Liquid PO 04/10/18 20:59 Not Given QID AGUSTÍN Protocol Nystatin 500,000 unit 03/13/18 17:00 03/14/18 05:42 Mycostatin Oral Liquid PO 04/12/18 16:59 500,000 unit QID AGUSTÍN Administration Protocol Ondansetron HCl 4 mg 03/11/18 17:52 03/12/18 14:00 Zofran IVP 09/07/18 17:51 4 mg Q4HRS PRN Administration Nausea/Vomiting, Can't Take PO Ondansetron HCl 4 mg 03/11/18 17:52 Zofran Odt PO 09/07/18 17:51 Q4HRS PRN Nausea/Vomiting, Use 1st Ondansetron HCl Confirm 03/12/18 13:43 Zofran Administered 03/12/18 13:44 Dose 4 mg .ROUTE .STK-MED ONE Pantoprazole Sodium 40 mg 03/12/18 17:30 03/13/18 08:51 Protonix IVP 09/08/18 17:29 40 mg DAILY AGUSTÍN Administration Polyethylene Glycol/Electrolytes 4,000 ml 03/15/18 07:58 03/15/18 13:48 Gavilyte - G PO 03/15/18 07:59 4,000 ml ONCE ONE Administration Potassium Chloride 40 meq 03/15/18 15:15 03/15/18 15:20 Klor-Con PO 03/15/18 15:16 40 meq ONCE ONE Administration Potassium Chloride 30 meq 03/17/18 09:31 03/17/18 10:57 Klor-Con PO 03/17/18 09:32 30 meq ONCE ONE Administration Protocol Potassium Chloride 10 meq 03/18/18 00:05 03/18/18 03:09 Klor-Con PO 03/18/18 00:06 10 meq ONCE ONE Administration Protocol Potassium Chloride 10 - 40 meq 03/18/18 10:35 03/18/18 11:13 Klor-Con PO 03/18/18 10:36 20 meq ONCE ONE Administration Protocol Potassium Chloride 20 meq 03/18/18 19:58 03/18/18 22:07 Klor-Con PO 03/18/18 19:59 20 meq ONCE ONE Administration Protocol Potassium Chloride 60 meq 03/24/18 05:37 03/24/18 05:55 Klor-Con PO 03/24/18 05:38 60 meq ONCE ONE Administration Prednisone 40 mg 03/20/18 14:00 Prednisone PO 09/16/18 13:59 DAILY AGUSTÍN Propofol Confirm 03/12/18 12:40 Diprivan 10 Mg/Ml (Premix) Administered 03/12/18 12:41 Dose 500 mg IV .STK-MED ONE Propofol Confirm 03/17/18 07:42 Diprivan Administered 03/17/18 07:43 Dose 200 mg .ROUTE .STK-MED ONE Trazodone HCl 50 mg 03/12/18 21:00 03/14/18 21:01 Trazodone PO 09/08/18 20:59 50 mg HS AGUSTÍN Administration Valacyclovir HCl 1,000 mg 03/13/18 13:30 03/14/18 08:47 Valtrex PO 04/12/18 13:29 1,000 mg Q12HRS AGUSTÍN Administration Physical Exam - Physical Exam General Appearance: alert, no apparent distress Cardiac/Chest: regular rate, rhythm Abdomen: normal bowel sounds, non-tender, soft Skin: normal color, warm/dry Lymphatic: no adenopathy Neuro/Psych: alert, normal mood/affect, oriented x 3 ICD10 Worksheet Patient Problems: Problems Problem Status Onset Mucositis Acute
--- NOTE | 2018-03-24 13:48 | ASMTCMCOM ---
CM Note CM Note Notes: Patient discussed with hospitalist. Bed available at [facility]. Likely to discharge tomorrow, Nasima at [facility] aware. CM to follow. Plan: to SNF Date Signed: 03/24/2018 01:41 PM Electronically Signed By:Katalina Ricci RN
[2018-03-24] MEDS ORDERED: POTASSIUM CL 10 MEQ TAB PO ONE (19:42)
[2018-03-24] MEDS: traZODone 50 MG TAB PO SCH (19:59)
[2018-03-24] MEDS: MESALAMINE 4 GM/60 ML ENEMA BOTTLE PR SCH ×2 (20:31)
[2018-03-25] MEDS: PANTOPRAZOLE SODIUM 40 MG TAB PO SCH (08:49)
[2018-03-25] MEDS: ONDANSETRON DISINTEGRATING 4 MG TAB PO PRN (08:49)
--- NOTE | 2018-03-25 10:05 | HOSPPROG ---
Hospitalist Progress Note Assessment/Plan: # colitis - likely d/t IBD; still having a few bloody BMs a day - cont prednisone - cont Rowasa enema and asacol - will overall try to minimize medications as she feels they are making her worse so she takes her IBD meds # hypoK - still falling; she is refusing klor-con as it makes her nauseas - encouraged her to eat bananas - will check BMP tomorrow am # oral ulcerations - likely same process as above # LE edema - symmetric doubt DVT; more likely low oncotic pressure with low albumin - no diuretics today given low K - elevate # gastritis - PPI # htn - arm reading (checked once) reading 40mmHg lower than leg - will hold anti-htn's today but follow closely # biliary ductal dilation - mild on MRCP; consider outpatient f/u # pancreatic cyst/atrophy - consider outpatient f/u in 1 year # L adnexal cysts # L upper pole renal nodule - f/u MRI 6-12 months # hx breast cancer s/p mastectomy # anemia - stable # dispo - SNF when doing better and not needing K supplement, possibly tomorrow Subjective: felt better when she refused medications Objective: Vital Signs Temp Pulse Resp BP Pulse Ox 36.7 C 87 17 141/55 H 93 03/25/18 08:00 03/25/18 08:00 03/25/18 08:00 03/25/18 08:00 03/25/18 08:00 Laboratory Results 03/22/18 05:45 03/25/18 05:30 03/24/18 03/25/18 03/26/18 05:59 05:59 05:59 Intake Total 600 500 Balance 600 500 PT 16.3 SEC (12.0-15.0) H 03/14/18 04:35 INR 1.29 (0.83-1.16) H 03/14/18 04:35 - Time Spent With Patient Time Spent with Patient: greater than 25 minutes Time Spent with Patient: Greater than 25 minutes spent on this patients care, greater than 50% of time spent counseling, educating, and coordinating care regarding the above mentioned plan. - Physical Exam Constitutional: appears nourished, uncomfortable ICD10 Worksheet Patient Problems: Problems Problem Status Onset Mucositis Acute
[2018-03-25] MEDS: LOSARTAN POTASSIUM 25 MG TAB PO SCH (10:23)
[2018-03-25] MEDS: predniSONE 20 MG TAB PO SCH (10:52)
[2018-03-25] MEDS: MESALAMINE 800 MG TAB.DR PO SCH ×3 (11:02→21:52)
--- NOTE | 2018-03-25 12:03 | SOAPPROG ---
SOAP Progress Note Assessment/Plan: Assessment: UC on PO prednisone. Feeling better today. Tolerating PO Plan: 1. Prednisone with taper, 5 mg every 7 days until off 2. Continue on Oral mesalamine 3. Rowasa qhs x total two weeks 4. Anticipate discharge soon. Follow up with Dr. Davis as an outpatient. 5. Please call if any further questions. 03/25/18 12:00 Subjective: CC: UC Feeling much better, taking PO well. Feels a little stronger Objective: Vital Signs Temp Pulse Resp BP Pulse Ox 36.8 C 81 17 125/75 H 91 L 03/25/18 11:53 03/25/18 11:53 03/25/18 11:53 03/25/18 11:53 03/25/18 11:53 Laboratory Results 03/22/18 05:45 03/25/18 05:30 03/24/18 03/25/18 03/26/18 05:59 05:59 05:59 Intake Total 600 500 Balance 600 500 PT 16.3 SEC (12.0-15.0) H 03/14/18 04:35 INR 1.29 (0.83-1.16) H 03/14/18 04:35 Generic Name Dose Route Start Last Admin Trade Name Freq PRN Reason Stop Dose Admin Acetaminophen 650 mg 03/11/18 17:52 03/14/18 16:17 Tylenol PO 09/07/18 17:51 650 mg Q4HRS PRN Administration Pain, Mild/Fever, Can Take PO Alteplase, Recombinant 2 mg 03/15/18 14:40 03/18/18 22:24 Cathflo Activase IVP 09/11/18 14:39 2 mg PRN PRN Administration Per PICC line policy Amlodipine Besylate 10 mg 03/20/18 09:00 03/25/18 10:23 Norvasc PO 09/16/18 08:59 Not Given DAILY AGUSTÍN Calcium Carbonate 500 mg 03/12/18 17:29 Tums PO 09/08/18 17:28 TID PRN Indigestion Lidocaine 5 - 10 ml 03/12/18 14:47 03/14/18 08:47 Lidocaine 2% Viscous PO 09/08/18 14:46 5 ml Q4 PRN Administration Mucositis, Mouth Pain Lidocaine/Diphenhydramine/Alumin/Mg 5 ml 03/11/18 18:05 03/14/18 08:47 Maalox/Diphenhydramine/Lido PO 09/07/18 18:04 5 ml PRN PRN Administration Mucositis, Mouth Pain Loperamide HCl 2 mg 03/14/18 06:49 03/18/18 17:18 Imodium PO 09/10/18 06:48 2 mg TID PRN Administration Diarrhea/Loose Stools Lorazepam 0.5 mg 03/13/18 09:22 03/24/18 19:59 Ativan PO 09/09/18 09:21 0.5 mg Q6H PRN Administration ANXIETY Losartan Potassium 25 mg 03/21/18 21:00 03/24/18 20:33 Cozaar PO 09/17/18 20:59 Not Given HS AGUSTÍN Losartan Potassium 50 mg 03/21/18 09:00 03/25/18 10:23 Cozaar PO 09/17/18 08:59 Not Given DAILY AGUSTÍN Melatonin 3 mg 03/12/18 01:46 03/23/18 22:20 Melatonin PO 09/08/18 01:45 3 mg HS PRN Administration Sleep/Insomnia Mesalamine 4 gm 03/17/18 21:00 03/24/18 20:31 Rowasa 4gm Enema NM 09/13/18 20:59 Not Given HS [facility] Mesalamine 1,600 mg 03/17/18 09:00 03/25/18 11:02 Asacol Hd PO 09/13/18 08:59 Not Given TID AGUSTÍN Ondansetron HCl 4 - 8 mg 03/12/18 17:31 03/24/18 08:11 Zofran IVP 09/07/18 17:51 4 mg Q4HRS PRN Administration Nausea/Vomiting, Can't Take PO Ondansetron HCl 4 - 8 mg 03/12/18 17:31 03/25/18 08:49 Zofran Odt PO 09/07/18 17:51 8 mg Q4HRS PRN Administration Nausea/Vomiting, Use 1st Pantoprazole Sodium 40 mg 03/14/18 09:00 03/25/18 08:49 Protonix PO 09/10/18 08:59 40 mg DAILY AGUSTÍN Administration Prednisone 40 mg 03/24/18 09:00 03/25/18 10:52 Prednisone PO 09/20/18 08:59 40 mg DAILY AGUSTÍN Administration Promethazine HCl 6.25 - 12.5 mg 03/11/18 17:52 03/12/18 09:49 Phenergan IVP 09/07/18 17:51 6.25 mg Q6HRS PRN Administration Nausea/Vomiting, Use 2nd Promethazine HCl 6.25 - 25 mg 03/12/18 17:30 Phenergan PO 09/08/18 17:29 Q6HRS PRN Nausea/Vomiting, Use 2nd Trazodone HCl 25 - 50 mg 03/15/18 20:26 03/24/18 19:59 Trazodone PO 09/08/18 20:59 50 mg HS AGUSTÍN Administration Discontinued Medications Generic Name Dose Route Start Last Admin Trade Name Freq PRN Reason Stop Dose Admin Amlodipine Besylate 5 mg 03/19/18 09:00 03/19/18 08:31 Norvasc PO 09/15/18 08:59 5 mg DAILY AGUSTÍN Administration Fentanyl Confirm 03/17/18 07:46 Sublimaze Administered 03/17/18 07:47 Dose 100 mcg .ROUTE .STK-MED ONE Gadobutrol Confirm 03/23/18 11:53 Gadavist 1 Mmol/Ml Administered 03/23/18 11:54 Dose 10 ml IVP .STK-MED ONE Hydralazine HCl 25 mg 03/18/18 17:55 03/21/18 20:10 Apresoline PO 09/14/18 21:59 25 mg Q8 PRN Administration hypertension Hydromorphone HCl 0.2 - 0.4 mg 03/11/18 17:52 Dilaudid IVP 03/21/18 17:51 Q4HRS PRN Pain, Severe Unable to Take PO Hydromorphone/Sodium Chloride 0.2 - 0.4 mg 03/12/18 17:31 Hydromorphone IVP 03/21/18 17:51 Q2 PRN Pain, Severe Unable to Take PO Fluconazole/Sodium Chloride 100 mls @ 100 mls/hr 03/11/18 18:00 03/12/18 09: 41 Diflucan 2mg/Ml (Premix) IV 04/10/18 17:59 100 mls DAILY AGUSTÍN Administration Sodium Chloride 1,000 mls @ 125 mls/hr 03/11/18 18:00 03/12/18 04:09 Ns IV 09/07/18 17:59 1,000 mls CONT AGUSTÍN Administration Famotidine/Sodium Chloride 50 mls @ 200 mls/hr 03/12/18 21:00 03/13/18 08:51 Pepcid 20 Mg (Premix) IV 09/08/18 20:59 50 mls Q12HRS AGUSTÍN Administration Sodium Chloride 1,000 mls @ 100 mls/hr 03/13/18 17:00 03/15/18 05:23 1/2 Ns IV 09/09/18 16:59 1,000 mls CONT AGUSTÍN Administration Potassium Chloride 50 mls @ 50 mls/hr 03/15/18 23:36 03/16/18 02:46 Potassium Cl 10 Meq (Premix) IV 03/16/18 02:35 50 mls Q1H AGUSTÍN Administration Potassium Chloride 100 mls @ 50 mls/hr 03/16/18 23:00 03/16/18 23:09 Potassium Cl 20 Meq (Premix) IV 03/17/18 00:59 100 mls ONCE ONE Administration Potassium Chloride 10 meq/ 50 mls @ 50 mls/hr 03/17/18 01:00 03/17/18 01:15 Dextrose IV 03/17/18 01:59 50 mls ONCE ONE Administration Iopamidol Confirm 03/14/18 12:41 Isovue-300 Administered 03/14/18 12:42 Dose 100 ml .ROUTE .STK-MED ONE Iopamidol Confirm 03/15/18 14:56 Isovue-370 Administered 03/15/18 14:57 Dose 100 ml IV .STK-MED ONE Lidocaine HCl Confirm 03/12/18 12:40 Xylocaine-Mpf 2% Vial Administered 03/12/18 12:41 Dose 5 ml .ROUTE .STK-MED ONE Losartan Potassium 25 mg 03/12/18 09:00 03/12/18 09:39 Cozaar PO 09/08/18 08:59 25 mg DAILY AGUSTÍN Administration Losartan Potassium 25 mg 03/12/18 21:00 03/20/18 21:15 Cozaar PO 09/08/18 20:59 25 mg BID AGUSTÍN Administration Methylprednisolone Sodium Succinate 40 mg 03/17/18 14:00 03/20/18 04:36 Solu-Medrol IVP 09/13/18 13:59 40 mg Q8HRS AGUSTÍN Administration Methylprednisolone Sodium Succinate 40 mg 03/20/18 14:00 03/23/18 05:10 Solu-Medrol IVP 09/16/18 13:59 40 mg Q8HRS AGUSTÍN Administration Naloxone HCl 0.1 mg 03/12/18 13:04 Narcan IVP 03/12/18 14:04 Q2M PRN PACU Resp Rate <10/min Naloxone HCl 0.1 mg 03/17/18 10:56 Narcan IVP 03/17/18 11:57 Q2M PRN PACU Resp Rate <10/min Nystatin 500,000 unit 03/11/18 21:00 03/12/18 17:39 Mycostatin Oral Liquid PO 04/10/18 20:59 Not Given QID AGUSTÍN Protocol Nystatin 500,000 unit 03/13/18 17:00 03/14/18 05:42 Mycostatin Oral Liquid PO 04/12/18 16:59 500,000 unit QID AGUSTÍN Administration Protocol Ondansetron HCl 4 mg 03/11/18 17:52 03/12/18 14:00 Zofran IVP 09/07/18 17:51 4 mg Q4HRS PRN Administration Nausea/Vomiting, Can't Take PO Ondansetron HCl 4 mg 03/11/18 17:52 Zofran Odt PO 09/07/18 17:51 Q4HRS PRN Nausea/Vomiting, Use 1st Ondansetron HCl Confirm 03/12/18 13:43 Zofran Administered 03/12/18 13:44 Dose 4 mg .ROUTE .STK-MED ONE Pantoprazole Sodium 40 mg 03/12/18 17:30 03/13/18 08:51 Protonix IVP 09/08/18 17:29 40 mg DAILY AGUSTÍN Administration Polyethylene Glycol/Electrolytes 4,000 ml 03/15/18 07:58 03/15/18 13:48 Gavilyte - G PO 03/15/18 07:59 4,000 ml ONCE ONE Administration Potassium Chloride 40 meq 03/15/18 15:15 03/15/18 15:20 Klor-Con PO 03/15/18 15:16 40 meq ONCE ONE Administration Potassium Chloride 30 meq 03/17/18 09:31 03/17/18 10:57 Klor-Con PO 03/17/18 09:32 30 meq ONCE ONE Administration Protocol Potassium Chloride 10 meq 03/18/18 00:05 03/18/18 03:09 Klor-Con PO 03/18/18 00:06 10 meq ONCE ONE Administration Protocol Potassium Chloride 10 - 40 meq 03/18/18 10:35 03/18/18 11:13 Klor-Con PO 03/18/18 10:36 20 meq ONCE ONE Administration Protocol Potassium Chloride 20 meq 03/18/18 19:58 03/18/18 22:07 Klor-Con PO 03/18/18 19:59 20 meq ONCE ONE Administration Protocol Potassium Chloride 60 meq 03/24/18 05:37 03/24/18 05:55 Klor-Con PO 03/24/18 05:38 60 meq ONCE ONE Administration Potassium Chloride 1 dose 03/24/18 06:24 Protocol Potassium MISC 09/20/18 06:23 AD PRN Pt on Electrolyte Protocol Protocol Potassium Chloride 10 meq 03/24/18 19:42 03/24/18 20:04 Klor-Con PO 03/24/18 19:43 Not Given ONCE ONE Protocol Prednisone 40 mg 03/20/18 14:00 Prednisone PO 09/16/18 13:59 DAILY AGUSTÍN Propofol Confirm 03/12/18 12:40 Diprivan 10 Mg/Ml (Premix) Administered 03/12/18 12:41 Dose 500 mg IV .STK-MED ONE Propofol Confirm 03/17/18 07:42 Diprivan Administered 03/17/18 07:43 Dose 200 mg .ROUTE .STK-MED ONE Trazodone HCl 50 mg 03/12/18 21:00 03/14/18 21:01 Trazodone PO 09/08/18 20:59 50 mg HS AGUSTÍN Administration Valacyclovir HCl 1,000 mg 03/13/18 13:30 03/14/18 08:47 Valtrex PO 04/12/18 13:29 1,000 mg Q12HRS AGUSTÍN Administration Physical Exam - Physical Exam General Appearance: alert Respiratory: lungs clear, normal breath sounds Cardiac/Chest: regular rate, rhythm Abdomen: normal bowel sounds, non-tender, soft Skin: normal color, warm/dry Neuro/Psych: alert, normal mood/affect, oriented x 3 ICD10 Worksheet Patient Problems: Problems Problem Status Onset Mucositis Acute
[2018-03-25] MEDS: LORazepam 0.5 MG TAB PO PRN (14:30)
[2018-03-25] MEDS: MESALAMINE 4 GM/60 ML ENEMA BOTTLE PR SCH (21:51)
[2018-03-25] MEDS: traZODone 50 MG TAB PO SCH (21:52)
[2018-03-26] MEDS: PANTOPRAZOLE SODIUM 40 MG TAB PO SCH (08:05)
[2018-03-26] MEDS: predniSONE 20 MG TAB PO SCH (08:05)
[2018-03-26] MEDS: ONDANSETRON DISINTEGRATING 4 MG TAB PO PRN (08:05)
[2018-03-26] MEDS: MESALAMINE 800 MG TAB.DR PO SCH (08:33)
[2018-03-26 11:08] VITALS: BP 151/81
--- NOTE | 2018-03-26 12:17 | PDIAF ---
- Diagnosis Diagnosis: Ulcerative colits Code Status: Full Code - Medication Management Discharge Medications: Medications to Continue on Transfer Ascorbic Acid [Vitamin C 500 mg (*)] 1,000 mg PO DAILY 04/04/17 [Last Taken ] Cholecalciferol Vit D3 [Vitamin D3 (*)] 1,000 units PO DAILY 04/04/17 [Last Taken 03/09/18] Cyanocobalamin [Vitamin B12 (*)] 1,000 mcg PO DAILY 04/04/17 [Last Taken ] Herbals/Supplements -Info Only 1 ea PO DAILY 04/04/17 [Last Taken 04/08/17] Acetaminophen [Tylenol 325mg (*)] 325 mg PO Q6 PRN 03/11/18 [Last Taken Unknown] Loperamide HCl [Imodium 2 mg (*)] 2 mg PO TID PRN #30 cap 03/26/18 [Last Taken Unknown] Mesalamine [Asacol Hd] 1,600 mg PO TID #90 tab.dr 03/26/18 [Last Taken Unknown] Mesalamine [Rowasa 4 gm Enema (*)] 4 gm FL HS #7 bottle 03/26/18 [Last Taken Unknown] Pantoprazole Sodium [Protonix 40mg (*)] 40 mg PO DAILY #30 tab 03/26/18 [Last Taken Unknown] predniSONE 40 mg PO DAILY #14 tablet 03/26/18 [Last Taken Unknown] Discharge Medications: Refer to the Discharge Home Medication list for PRN reason. - Orders Services needed: Physical Therapy, Occupational Therapy Isolation Type: None Diet Recommendation: no restrictions on diet Diet Texture: Regular Texture Diet, Thin Liquids, Meds Whole w/Liquids Additional Instructions: Activity: as tolerate F/U: with PCP in one - two week F/u: with Dr. Almazan in 2-4 weeks - Follow Up Care Current Providers and Referrals: Hailey Linares MD [Primary Care Provider] -
--- NOTE | 2018-03-26 12:21 | PDDCSUM ---
Discharge Summary Discharge Summary: 77 yo female admitted with colitis. Feels better. tolerating a diet will have a steroid taper Oral Mesalamine started but she has not taken in 2 days. Refusing Rowasa will f/u with Dr. Davis will d/c to [facility] labs are normal today, including potassium DDX: # colitis - likely d/t IBD (UC); - cont prednisone - cont Rowasa enema and asacol if she compliant with them # hypoK - now normal # oral ulcerations - likely same process as above # LE edema - symmetric doubt DVT; more likely low oncotic pressure with low albumin - no diuretics given low K - elevate # gastritis - PPI # htn - some borderline low bp. will hold meds # biliary ductal dilation - mild on MRCP; consider outpatient f/u # pancreatic cyst/atrophy - consider outpatient f/u in 1 year # L adnexal cysts # L upper pole renal nodule - f/u MRI 6-12 months # hx breast cancer s/p mastectomy # anemia - stable Exam: NAD AAOX3 RRR CTAB S/NT/ND NO EDEMA F/U: PER ABOVE MEDS: SEE MED REC TOTAL TIME SPENT ON DC IS 35 MINS
[2018-03-26] MEDS: LORazepam 0.5 MG TAB PO PRN (14:28)
--- NOTE | 2018-03-26 14:39 | ASMTLACE ---
LACE Length of stay for Answers: 14 days or more current admission Acuity / Level of Answers: Yes Care: Did the patient have an inpatient admission? Comorbidities - select Answers: Other Notes: HTN all that apply # of Emergency department Answers: 0 visits in the last 6 months Score: 11 Date Signed: 03/26/2018 02:38 PM Electronically Signed By:Marly Giraldo RN
--- NOTE | 2018-03-26 16:54 | ASDISCHSUM ---
Discharge Information Plan Status:SNF Medically Cleared to Leave: Discharge Date:03/26/2018 03:49 PM D/C Disposition:Shelter Facility ADT D/C Disposition:Shelter Facility Projected Discharge Date:03/26/2018 11:00 AM Transportation at D/C:Wheelchair Van Discharge Delay Reason: Follow-Up Date:03/26/2018 11:00 AM Discharge Slot: Final Diagnosis: Placement Information Referral Type:*Home Health Care Services Referral ID:[id number] Provider Name: Address 1: Phone Number: Address 2: Fax Number: City: Selection Factors: State: Referral Type:*Longterm/SNF Referral ID:[id number] Provider Name:[facility] Address 1:[facility] Address 2: City:[place] Selection Factors: State:[place] Patient Contact Information Contact Name:RAMU Relationship: Address: City: Alternate Phone: State/Zip Code: Email: Financial Information Financial Class:Medicare Primary Plan Desc:MEDICARE INPATIENT Primary Plan Number:[id number] Secondary Plan Desc:KELLY MURPHY PPO Secondary Plan Number:[id number] Assessment Information LACE LACE Length of stay for Answers: 14 days or more current admission Acuity / Level of Answers: Yes Care: Did the patient have an inpatient admission? Comorbidities - select Answers: Other Notes: HTN all that apply # of Emergency department Answers: 0 visits in the last 6 months Score: 11 Date Signed: 03/26/2018 02:38 PM Electronically Signed By:Marly Giraldo RN [facility] Progress Note CM Note CM Note Notes: Chart reviewed. Patient is 77 year old female admitted with nausea and weight loss. Lives alone in [place]. Being followed by hospital medicine and GI. Having workup for bloody stools. Needs remain to be determined at this time. CM to follow. Date Signed: 03/14/2018 01:14 PM Electronically Signed By:Katalina Ricci RN [facility] CM Progress Note CM Note CM Note Notes: Chart reviewed. Colonoscopy delayed due to difficulty with prep. NG tube placed and prep to begin later today. No clear diagnosis yet. Patient offered emotional support. She lives alone. She tells me she relies on her brother and sister in law as well as her daughter Valentina who lives in [place]. The patient's son Jono is her MDPOA and he lives in [place]. Per the patient her [employer] has copy. I requested that when she felt well enough to ask family to obtain a copy. She is frustrated that no diagnosis has been made yet. Plan: TBD Date Signed: 03/16/2018 11:24 AM Electronically Signed By:Katalina Ricci RN [facility] CM Progress Note CM Note CM Note Notes: Chart reviewed. Patient s/p colonoscopy which reaveal sever IBD of unknown etiology . She is tearful and frustrated. Spoke with her daughter Valentina ([phone]) Cell phone. Her son Jono is POA ([phone]). She is quite weak and deconditioned.- May need services. CM to follow. Plan: TBD Date Signed: 03/17/2018 05:28 PM Electronically Signed By:Katalina Ricci RN [facility] CM Progress Note CM Note CM Note Notes: OT/PT rec SNF vs HC. CM will f/u with pt tomorrow. Date Signed: 03/19/2018 04:04 PM Electronically Signed By:Kristine Gonzalez LCSW [facility] CM Progress Note CM Note CM Note Notes: Met with patient regarding discharge plan of care. Patient currently lives at home independently but states she has a lot of support from friends/family (brother and [id number] are located in [place]). We discussed the possibility of going to SNF upon discharge (recommended by therapy), patient refuses at this time. She states her recently at a SNF ([facility]), has no interest in going to rehab at this time. Patient prefers home care and has used [facility] in the past. Spoke with Lucy at [facility] re: referral, able to accept. Patient also states she just bought a new house in [place] but plans on returning to her current residence upon discharge. CM will continue to follow patient's case to ensure she is safe to return home with [facility]. PASRR completed should patient change her mind and need SNF. Current D/C Plan: Home with [facility] Date Signed: 03/21/2018 02:56 PM Electronically Signed By:Bethanie Gonzales RN [facility] CM Progress Note CM Note CM Note Notes: Patient reports that she would like to go to [facility] for rehab. Referral sent. Date Signed: 03/23/2018 04:03 PM Electronically Signed By:Deya Wheeler LCSW [facility] CM Progress Note CM Note CM Note Notes: Patient discussed with hospitalist. Bed available at [facility]. Likely to discharge tomorrow, Nasima at [facility] aware. CM to follow. Plan: to [facility] Date Signed: 03/24/2018 01:41 PM Electronically Signed By:Katalina Ricci RN Case Management Discharge Plan Note Case Management Discharge Discharge Order Complete? Answers: Yes Patient to Obtain Answers: Other Notes: [facility] rehab Medications Transportation Arranged Answers: Other Notes: van Transport will Pick (Date 03/26/2018 03:30 PM & Time) Family Notified Answers: Yes Notes: pt will notify dtr Discharge Comments Notes: Pt will dc today to [facility]. Spoke w/Rhonda at [facility]; they are ready to accept. Orders/info sent to [facility].Met w/pt who is in agreement w/dc plan. Discussed w/RN who will call report. Date Signed: 03/26/2018 02:37 PM Electronically Signed By:Marly Giraldo RN Intervention Information Intervention Type:*IM-Signed Date of Service:03/26/2018 03:32 PM Patient Type:Inpatient Staff Member:Arcelia Corral Hours: Discipline: Severity: Comment:
== END 2018-03-26 15:49 | DRG 386 ==
LOC: OBSVTOIN 15:48 → F1N 15:48
PROVIDERS: ADMIT Internal Medicine; ATTEND Internal Medicine
DX: K51.90 Ulcerative colitis, unspecified, without complications (principal); K12.1 Other forms of stomatitis; E87.6 Hypokalemia; E87.0 Hyperosmolality and hypernatremia; N28.89 Other specified disorders of kidney and ureter; K83.8 Other specified diseases of biliary tract; I10 Essential (primary) hypertension; Z85.3 Personal history of malignant neoplasm of breast; Z86.711 Personal history of pulmonary embolism; Z96.659 Presence of unspecified artificial knee joint
CPT/HCPCS: 82607-90; 83516-90; 83520-90; 86255-90; 86644-90; 86645-90; 87497-90; 87529-90; 87798-90; 92610-GN; 97110-GP; 97116-GP; 97162-GP; 97165-GO; 97530-GP; 97535-GO; A9585; C1751; G0472; G8978-GP-CI; G8978-GP-CJ; G8979-GP-CI; G8987-GO-CK; G8988-GO-CI; G8996-GN-CH; G8997-GN-CH; G8998-GN-CH; J1450; J2405; J2550; J2704; J2920; J2997; J3010; J3480; J7512; Q9967

== ENCOUNTER → 2018-07-08 | Outpatient (CLI) | payer OTHER | LOC: BMCIMAGING 15:04 | PROVIDERS: ATTEND Orthopaedic Surgery | DX: Z47.1 Aftercare following joint replacement surgery (principal); Z96.651 Presence of right artificial knee joint ==

== ENCOUNTER → 2018-07-31 | Outpatient (CLI) | payer OTHER | LOC: BMCIMAGING 13:16 | PROVIDERS: ATTEND Internal Medicine | DX: Z12.31 Encounter for screening mammogram for malignant neoplasm of breast (principal); Z90.11 Acquired absence of right breast and nipple ==

== ENCOUNTER → 2019-02-04 | Outpatient (CLI) | payer OTHER ==
[~2019-02-04] MED LIST changes: -ACETAMINOPHEN 325 MG TAB PO ONE; -CEFAZOLIN 2 GM/DEXTR 100 ML IV ONE; -CHLORHEXIDINE GLUC HIBICLENS 118 ML BTL TP ONE; -FAMOTIDINE 20 MG TAB PO ONE; +GADOBUTROL 10 ML VIAL IVP ONE; -ROPI/epiNEPH/KETOROLAC/morphINE JOINT COCKTAIL IU ONE; -TRANEXAMIC ACID 800 MG in NS 100 ML IV ONE
== END ==
LOC: FIMAGING 13:40
PROVIDERS: ATTEND Nurse Practitioner Family
DX: R93.5 Abnormal findings on diagnostic imaging of other abdominal regions, including retroperitoneum (principal); K86.89 Other specified diseases of pancreas; K83.8 Other specified diseases of biliary tract; N28.1 Cyst of kidney, acquired; K86.2 Cyst of pancreas
CPT/HCPCS: 74183; A9585; 82565-PO

== ENCOUNTER → 2019-03-02 | Outpatient (CLI) | payer OTHER | LOC: BMCIMAGING 12:20 | PROVIDERS: ATTEND Internal Medicine Geriatric Medicine | DX: R05 Cough (principal); M19.019 Primary osteoarthritis, unspecified shoulder; I70.0 Atherosclerosis of aorta; Z85.3 Personal history of malignant neoplasm of breast ==